=== PATIENT | female | born 1980 | race Caucasian/White ===

== ENCOUNTER 2019-01-04 06:48 | Inpatient (IN) ==
[2019-01-04] MEDS ORDERED: BRETHINE ONE (06:49)
[2019-01-04] MEDS ORDERED: DUONEB (A & A) ONE (06:52)
[2019-01-04] MEDS ORDERED: MAGNESIUM SULFATE 2 GM/S.W.I. 2 GM/50 ML IVPB ONE (06:53)
[2019-01-04] MEDS ORDERED: SOLU-MEDROL ONE (06:54)
[2019-01-04] MEDS ORDERED: DUONEB (A & A) INH ONE ×2 (07:00→08:52)
[2019-01-04] MEDS ORDERED: BRETHINE SUBQ ONE (07:01)
[2019-01-04] MEDS ORDERED: SOLU-MEDROL IV ONE (07:01)
[2019-01-04] MEDS ORDERED: MAGNESIUM SULFATE 2 GM/S.W.I. 2 GM/50 ML IVPB IV ONE (07:02)
--- NOTE | 2019-01-04 07:13 | PROVIDER DOCUMENTATION ---
HPI-Respiratory General - General Chief Complaint: Shortness of Breath Stated Complaint: ASTHMA ATTACK? Time Seen by Provider: 01/04/19 07:02 Source: patient Allergies/Adverse Reactions: Patient Allergies Allergy/AdvReac Type Severity Reaction Status Date / Time No Known Allergies Allergy Verified 01/04/19 07:49 Home Medications: Home Medication List Medication Instructions Recorded Confirmed Last Taken Type Albuterol [Albuterol Neb] 1 dose INHALATION DIRECTED 01/04/19 01/04/19 10/05/18 09:00 History - History of Present Illness-Resp Nature of Presenting Problem: Gradually worsening SOB x 2 days. Pt has a history of asthma and had been frequently using her inhaler until yesterday when it ran out. She is in severe resp distress on arrival, thus history is limited. Pt later admitted that she has been out of her asthma meds for the past 2 weeks due mainly to cost and out of her inhaler for the past day. Quality of Pain: reports: burning Severity in ED: reports: moderate Onset/Duration: reports: 1-3 hours ago Timing: reports: still present, getting worse Context: reports: out of meds Exposure: reports: smoke exposure Cough Quality/Degree: reports: moderate Episode Frequency: frequent episodes Current Respiratory Medication Therapy: Initiated see nurses note Modifying Factors: improves with: albuterol inhaler, coughing, oxygen Associated Symptoms: reports: hurts to breathe, shortness of breath, wheezing Similar Symptoms Previously?: Yes Recently seen or treated by another doctor?: No Review of Systems - Adult - REVIEW OF SYSTEMS - ADULT ROS:: unobtainable per condition Constitutional: reports: see HPI Eyes: reports: see HPI Ears, Nose, Mouth & Throat: reports: see HPI Cardiovascular: reports: see HPI Respiratory: reports: see HPI, cough, wheezing Gastrointestinal: reports: no symptoms reported, see HPI Genitourinary: reports: no symptoms reported, see HPI Musculoskeletal: reports: no symptoms reported, see HPI Integumentary: reports: no symptoms reported, see HPI Neurological: reports: no symptoms reported, see HPI Psychiatric: reports: no symptoms reported, see HPI Endocrine: reports: no symptoms reported, see HPI Hematologic/Lymphatic: reports: no symptoms reported, see HPI Allergic/Immunologic: reports: no symptoms reported, see HPI All Other Systems: Reviewed and Negative Past History - Adult - PAST MEDICAL HISTORY-ADULT Review of Records: reports: Nursing Assessment Review, Medications Reviewed, Social history reviewed & non-contributory. Physical Exam-General - PHYSICAL EXAM-ADULT Initial Vital Signs Reviewed: Yes - CONSTITUTIONAL General Appearance: severe distress - EYES Eyes: PERRL/EOMI, pink conjunctivae - HEAD, EARS, NOSE, MOUTH & THROAT HENMT: normocephalic/atraumatic, moist mucous membranes, pharyngeal erythema - NECK Neck: non-tender, supple, normal inspection - RESPIRATORY Respiratory: decreased breath sounds, accessory muscle use, wheezing, retractions - CARDIOVASCULAR Cardiovascular: normal peripheral pulses, tachycardia. negative: JVD - GASTROINTESTINAL (ABDOMEN) Abdominal Exam: non tender, soft - LYMPHATIC Lymphatic: no adenopathy - MUSCULOSKELETAL Back Exam: normal inspection Extremity: normal range of motion - SKIN Integumentary: normal color, normal turgor, warm/dry - NEUROLOGIC Neurologic: grossly normal - HEART Score HEART Score: History: Slightly Suspicious HEART Score: ECG: Normal HEART Score: Age: < or = 45 Years HEART Score: Risk Factors for Atherosclerotic Disease: 1 or 2 Risk Factors HEART Score: Troponin: < or = Normal Limit Total HEART Score:: 1 Progress - PLAN OF CARE/RESULTS Progress/Plan/Lab Results: Laboratory Results - last 24 hr 01/04/19 01/04/19 01/04/19 07:01 07:04 07:04 WBC RBC Hgb Hct MCV MCH MCHC RDW Std Deviation Plt Count MPV Immature Gran % (Auto) Neut % (Auto) Lymph % (Auto) [place] % (Auto) Eos % (Auto) Baso % (Auto) Immature Gran # (Auto) Neut # (Auto) Lymph # (Auto) [place] # (Auto) Eos # (Auto) Baso # (Auto) Specimen Type Sample Site pH pCO2 pO2 HCO3 Base Excess Oxyhemoglobin ABG O2 Sat (Calculated) ABG O2 Saturation ABG Carboxyhemoglobin ABG Methemoglobin Evangelista Test A-a O2 Difference Total Hemoglobin Lactate Blood Gas Modality FiO2 % Sodium 144 Potassium 4.7 Chloride 107 Carbon Dioxide 27 Anion Gap 11 BUN 11 Creatinine 0.7 Estimated GFR/1.73 m2 > 60 BUN/Creatinine Ratio 16 Glucose 120 H Calculated Osmolality 287 Calcium 9.1 Total Bilirubin < 0.15 L AST 17 ALT 15 Alkaline Phosphatase 125 H Troponin T < 0.010 Tsa-F-Wrhfzwhwcrh Pept 393 H Total Protein 8.0 Albumin 4.3 Globulin 4.0 Albumin/Globulin Ratio 1.0 09/04/19 09/04/19 07:26 07:26 WBC 10.90 H RBC 5.15 Hgb 13.9 Hct 45.7 MCV 88.7 MCH 27.0 MCHC 30.4 L RDW Std Deviation 16.7 H Plt Count 338 MPV 10.0 Immature Gran % (Auto) 0.2 Neut % (Auto) 58.4 Lymph % (Auto) 20.2 L [place] % (Auto) 8.8 Eos % (Auto) 11.8 H Baso % (Auto) 0.6 Immature Gran # (Auto) 0.02 Neut # (Auto) 6.37 Lymph # (Auto) 2.20 [place] # (Auto) 0.96 H Eos # (Auto) 1.29 H Baso # (Auto) 0.06 Specimen Type ARTERIAL Sample Site R BRACHIAL pH 7.33 L pCO2 44 pO2 76 HCO3 22.7 Base Excess -2.8 Oxyhemoglobin 94.0 L ABG O2 Sat (Calculated) 18.0 ABG O2 Saturation 97.1 ABG Carboxyhemoglobin 2.10 ABG Methemoglobin 1.1 Evangelista Test NO A-a O2 Difference 154.0 Total Hemoglobin 13.6 Lactate 1.80 Blood Gas Modality VENTIMASK FiO2 % 40.0 Sodium Potassium Chloride Carbon Dioxide Anion Gap BUN Creatinine Estimated GFR/1.73 m2 BUN/Creatinine Ratio Glucose Calculated Osmolality Calcium Total Bilirubin AST ALT Alkaline Phosphatase Troponin T Ywi-A-Jugkdjcvowd Pept Total Protein Albumin Globulin Albumin/Globulin Ratio Orders Category Date Time Status Admit - [facility] Routine AdmDCTranf 01/04/19 11:22 Active Activity - Bedrest with BSC ORDERED Care 01/04/19 12:06 Active Apply Mechanical Device [QM] ORDERED Care 01/04/19 12:06 Active ED: Urine Bedside ORDERED Care 01/04/19 08:55 Completed Intake and Output-Strict ORDERED Care 01/04/19 12:06 Active Nursing- Assist w/ IS as order ORDERED Care 01/04/19 12:06 Active Saline Loc DIRECTED Care 01/04/19 12:06 Active Turn, Cough and Deep Breathe Q4HR.AWAKE Care 01/04/19 12:06 Active Vital Signs Order Q 4-HR ASSESS Care 01/04/19 12:06 Completed Z-Document. for Tele Applied ORDERED Care 01/04/19 12:06 Active CHEST-1 VIEW [RAD] Stat Exams 01/04/19 07:01 Completed CHEST-PORTABLE [RAD] Routine Exams 01/05/19 06:00 Ordered ABG [RESP] Routine Lab 01/04/19 07:26 Completed BASIC METABOLIC PANEL [CHEM] Routine Lab 01/05/19 06:00 Ordered CBC WITH DIFF [HEME] Stat Lab 01/04/19 12:15 Completed CBC WITH ELECTRONIC DIFF [HEME] Stat Lab 01/04/19 07:26 Completed COMPREHENSIVE METABOLIC PANEL [CHEM] Stat Lab 01/04/19 07:04 Completed PRO B-NATRIURETIC PEPTIDE Stat Lab 01/04/19 07:04 Completed SPUTUM CULTURE WITH GRAM STAIN [RM] Routine Lab 01/04/19 12:20 Results TROPONIN T Stat Lab 01/04/19 07:01 Completed Acetaminophen [Tylenol] Med 01/04/19 12:06 Active 650 mg PO Q6H PRN PRN Albuterol 2.5MG/Ipratrop 0.5MG [Duoneb (A & A)] Med 01/04/19 08:52 Discontinued 3 ml INH NOW ONE Albuterol 2.5MG/Ipratrop 0.5MG [Duoneb (A & A)] Med 01/04/19 12:06 Active 3 ml INH Q2H PRN PRN Albuterol 2.5MG/Ipratrop 0.5MG [Duoneb (A & A)] Med 01/04/19 12:06 Active 3 ml INH RTQ4H Albuterol 2.5MG/Ipratrop 0.5MG [Duoneb (A & A)] Med 01/04/19 06:52 Discontinued 9 ml .ROUTE .STK-MED ONE Albuterol 2.5MG/Ipratrop 0.5MG [Duoneb (A & A)] Med 01/04/19 07:00 Discontinued 9 ml INH NOW ONE Budesonide [Pulmicort] Med 01/04/19 07:38 Discontinued 1 mg INH NOW ONE Levofloxacin 500 mg/D5w [Levaquin 500 mg/D5w] Med 01/04/19 13:00 Active 500 mg in 100 ml IV Q24H Magnesium Sulfate 2 gm/S.w.i. Med 01/04/19 06:53 Discontinued 2 gm in 50 ml .ROUTE As directed Magnesium Sulfate 2 gm/S.w.i. Med 01/04/19 07:02 Discontinued 2 gm in 50 ml IV NOW Methylprednisolone Sod Succ [Solu-Medrol] Med 01/04/19 06:54 Discontinued 125 mg .ROUTE .STK-MED ONE Methylprednisolone Sod Succ [Solu-Medrol] Med 01/04/19 07:01 Discontinued 125 mg IV NOW ONE Methylprednisolone Sod Succ [Solu-Medrol] Med 01/04/19 12:00 Active 80 mg IV Q6H Ondansetron [Zofran] Med 01/04/19 12:06 Active 4 mg IV Q4H PRN PRN Terbutaline [Brethine] Med 01/04/19 07:01 Discontinued 0.25 mg SUBQ NOW ONE Terbutaline [Brethine] Med 01/04/19 06:49 Discontinued 1 mg .ROUTE .STK-MED ONE Aerosol Treatments Routine Ot 01/04/19 08:53 Completed Aerosol Treatments Routine Ot 01/04/19 12:06 Completed Aerosol Treatments Stat Ot 01/04/19 07:38 Completed Aerosol Treatments Stat Ot 01/04/19 07:38 Completed Aerosol Treatments Stat Ot 01/04/19 08:53 Completed Aerosol Treatments Stat Ot 01/04/19 12:06 Completed Incentive Spirometer Q4HR.AWAKE Ot 01/04/19 13:00 Ordered Incentive Spirometer Q4HR.AWAKE Ot 01/04/19 17:00 Ordered Incentive Spirometer Q4HR.AWAKE Ot 01/04/19 21:00 Ordered Incentive Spirometer Q4HR.AWAKE Ot 01/05/19 01:00 Active Incentive Spirometer Q4HR.AWAKE Ot 01/05/19 05:00 Active Incentive Spirometer Q4HR.AWAKE Ot 01/05/19 09:00 Active Oxygen Device Routine Ot 01/04/19 12:06 Completed Peak Flow BID Ot 01/04/19 21:00 Ordered Peak Flow BID Ot 01/05/19 09:00 Active Telemetry [OM.EQ] Routine Oth 01/04/19 12:06 Active EKG [EKG] Routine Ther 01/04/19 Draft Transfer/Admit Order [TRANSFER] Routine Transfer 01/04/19 10:17 Completed At recheck pt admits to being out of her normal inhaler for about 2 weeks and out of her rescue inhaler x 1 day. Pt states that her meds arent free as the reason that she hasnt had them refilled. Pt is a current smoker. At recheck pt notes that she is breathing better but her oxygen drops to 88% on RA. Result Diagrams: 01/04/19 12:15 01/04/19 07:04 - CONSULTS/PCP/HOSPITALIST Notification #1 *Consult/PCP/Hospitalist*: Dr Pineda Time Discussed: 10:10 Consult Disposition: Admit Departure - Departure Date of Disposition Decision: 01/04/19 Time of Disposition Decision: 09:46 DIAGNOSIS: Asthma with severe exacerbation, Hypoxia, Respiratory distress Disposition: ADMITTED INPATIENT 09 Certified Medical Emergency: Emergent Condition: Fair - Critical Care Note This patient required my direct & personal management of CC.: Yes Total Time (mins): 60 Critical Care Statement: This patient required my direct personal management to treat or rule out processes, the absence of which, could potentiallly result in sudden, clinically significant life or limb threatening deterioration. Attestation - Physician/ FRANK Attestation Patient care was provided by Advanced Practice Provider:: No The physician spent face to face time with patient:: Yes Advanced Practice Provider documentation review:: Supervising physician onsite and consulted in the evaluation and care of this patient. The physician did have a face to face encounter with the patient.
[2019-01-04 07:28] LABS: BASO# 0.06 X1000 (0.0-0.2); BASO% 0.6 % (0.0-0.8); EOS# 1.29 X1000 (0.0-0.7); EOS% 11.8 % (0.0-10.0); HEMATOCRIT 45.7 % (37.0-47.0); HEMOGLOBIN 13.9 g/dL (12.0-16.0); IMM GRAN# 0.02 X1000 (0.0-0.04); IMM GRAN% 0.2 % (0.0-0.5); LYMPH% 20.2 % (20.5-51.1); MCHC 30.4 g/dL (33-37); MCV 88.7 FL (81-99); MONO# 0.96 X1000 (0.11-0.59); MONO% 8.8 % (1.7-9.3); NEUT# 6.37 X1000 (1.4-6.5); NEUT% 58.4 % (42.2-75.2); PLT 338 X1000 (130-400); RBC 5.15 XMIL (4.2-5.4); RDW 16.7 % (11.5-14.5)
[2019-01-04] MEDS ORDERED: PULMICORT INH ONE (07:38)
[2019-01-04 07:43] LABS: AGAP 11; ALBUMIN 4.3 g/dL (3.5-5.0); ALKALINE PHOSPHATASE 125 U/L (32-104); BUN 11 mg/dL (8-22); CALCIUM 9.1 mg/dL (8.8-10.2); CHLORIDE 107 mmol/L (98-107); COSMO 287; CREATININE 0.7 mg/dL (0.5-0.9); ESTIMATED GFR > 60; GLUCOSE 120 mg/dL (70-104); GOT 17 U/L (10-30); POTASSIUM 4.7 mmol/L (3.5-5.1); SODIUM 144 mmol/L (136-145); TCO2 27 mmol/L (25-35); TOTAL BILIRUBIN < 0.15 mg/dL (0.20-1.00)
[2019-01-04 07:44] LABS: GPT 15 U/L (10-36)
[2019-01-04 07:45] LABS: BE -2.8 mmoll (-3.0-3.0); BLOOD TYPE ARTERIAL; HCO3-(ACT) 22.7 mmoll (20.0-26.0); METHB 1.1 % (0.0-1.5); PCO2(98.6) 44 mmHg (35-45); PO2(98.6) 76 mmHg (60-100); SAMPLE BLOOD; SAO2 97.1 % (95.0-100.0); THB 13.6 g/dL (11.5-17.4); pH(98.6) 7.33 (7.35-7.45)
[2019-01-04 07:48] LABS: MODALITY VENTIMASK
[2019-01-04 07:49] LABS: ALLEN TEST NO
--- NOTE | 2019-01-04 08:11 | EKG Report ---
Test Performed on : 01/04/2019 06:54:45 AM Test Reason : ER Blood Pressure : / mmHG Vent. Rate : 125 BPM Atrial Rate : 125 BPM P-R Int : 150 ms QRS Dur : 058 ms QT Int : 308 ms P-R-T Axes : 080 034 076 degrees QTc Int : 444 ms Sinus tachycardia. Possible Left atrial enlargement Anteroseptal infarct , age undetermined Abnormal ECG No previous ECGs available Unconfirmed Result
--- NOTE | 2019-01-04 08:48 | Diag Imaging Result Doc PS360 ---
CHEST-1 VIEW - 01/04/2019 INDICATION: sob COMPARISON: None FINDINGS: The lungs are normally expanded and clear. Heart size and mediastinal contours are normal. No pneumothorax or pleural effusion. IMPRESSION: Negative exam. Electronically signed by Latrell Wick 01/04/2019 8:46 AM
[2019-01-04] MEDS ORDERED: DUONEB (A & A) INH PRN (12:06)
[2019-01-04] MEDS ORDERED: ZOFRAN IV PRN (12:06)
[2019-01-04] MEDS ORDERED: TYLENOL PO PRN (12:06)
[2019-01-04] MEDS: DUONEB (A & A) INH SCH ×4 (12:20→23:55)
[2019-01-04 12:33] LABS: BASO# 0.02 X1000 (0.0-0.2); BASO% 0.2 % (0.0-0.8); EOS# 0.03 X1000 (0.0-0.7); EOS% 0.3 % (0.0-10.0); HEMATOCRIT 42.3 % (37.0-47.0); HEMOGLOBIN 12.9 g/dL (12.0-16.0); IMM GRAN# 0.02 X1000 (0.0-0.04); IMM GRAN% 0.2 % (0.0-0.5); LYMPH# 0.26 X1000 (1.2-3.4); LYMPH% 2.5 % (20.5-51.1); MCHC 30.5 g/dL (33-37); MCV 88.5 FL (81-99); MONO# 0.06 X1000 (0.11-0.59); MONO% 0.6 % (1.7-9.3); MPV 9.8 FL (7.4-10.4); NEUT# 9.95 X1000 (1.4-6.5); NEUT% 96.2 % (42.2-75.2); PLT 284 X1000 (130-400); RBC 4.78 XMIL (4.2-5.4); RDW 16.3 % (11.5-14.5); WBC 10.34 X1000 (4.8-10.8)
[2019-01-04 12:34] LABS: LYMPHS 2 % (21-51); SEGS 98 % (42-75)
[2019-01-04] MEDS: SOLU-MEDROL IV SCH ×2 (13:35→17:29)
[2019-01-04] MEDS: LEVAQUIN 500 MG/D5W 500 MG/100 ML IVPB IV SCH (13:35)
[2019-01-04] MEDS ORDERED: PNEUMOVAX 23 IM ONE (14:15)
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
[2019-01-04] MEDS: PULMICORT INH SCH (20:37)
[2019-01-05] MEDS: SOLU-MEDROL IV SCH ×4 (00:08→20:54)
--- NOTE | 2019-01-05 00:32 | HISTORY AND PHYSICAL ---
ADDENDUM: Patient seen and examined by myself. Full note dictated and discussed with nurse practitioner. The patient is a 38-year-old female who has a known history of asthma. Unfortunately, she notes that she has not been able to afford her asthma medications. She presented to the ER with marked wheezing and shortness of breath. On exam she is moderately labored, although improved after being given several breathing treatments in the ER. We will admit her to the hospital. IV fluids, oxygen, breathing treatments and steroids. We will continue to follow. Expect that she will be in the hospital for a few days. cc: Yves Pineda MD
[2019-01-05] MEDS: DUONEB (A & A) INH SCH ×6 (04:23→22:49)
[2019-01-05 06:50] LABS: AGAP 12; BUN 17 mg/dL (8-22); CALCIUM 9.2 mg/dL (8.8-10.2); CHLORIDE 104 mmol/L (98-107); COSMO 291; CREATININE 0.9 mg/dL (0.5-0.9); ESTIMATED GFR > 60; GLUCOSE 244 mg/dL (70-104); POTASSIUM 4.9 mmol/L (3.5-5.1); SODIUM 141 mmol/L (136-145); TCO2 25 mmol/L (25-35)
--- NOTE | 2019-01-05 08:42 | Diag Imaging Result Doc PS360 ---
EXAM: CHEST-PORTABLE - 01/05/2019 HISTORY: short of breath TECHNIQUE: Portable chest COMPARISON: 01/04/2019 FINDINGS: Heart size is normal. There is stable mild prominence of central markings. There is no consolidation, pleural effusion, or pneumothorax identified. IMPRESSION: Stable exam from prior. Electronically signed by Moses Lyman 01/05/2019 8:39 AM
[2019-01-05] MEDS: PULMICORT INH SCH ×2 (08:50→19:31)
[2019-01-05] MEDS: KLONOPIN PO PRN (13:08)
[2019-01-05] MEDS: LEVAQUIN 500 MG/D5W 500 MG/100 ML IVPB IV SCH (13:09)
--- NOTE | 2019-01-06 03:20 | PROGRESS NOTE ---
DATE: 01/05/2019 SUBJECTIVE: Patient with no new complaints states she is still quite anxious and nervous. She is still having some marked shortness of breath and wheezing. Denies any fevers or chills. PHYSICAL EXAMINATION: Vital Signs: Reviewed. Temperature 98.5 degrees, pulse 107, respiratory 18, BP 142/90. General: Patient is awake, alert. She is in mild respiratory distress. HEENT: Normocephalic. Neck: Supple. Cardiovascular: Regular rate. No murmurs. Chest: Decreased breath sounds but improved from yesterday's exam. Moderate wheezing throughout. Abdomen: Soft. Extremities: Moves all extremities. ASSESSMENT: 1. Severe asthma exacerbation. 2. Hypoxic respiratory failure. 3. Chronic anxiety. PLAN: We will continue patient in the hospital. Continue breathing treatments, oxygen, steroids, and will follow. cc: Yves Pineda MD
[2019-01-06] MEDS: DUONEB (A & A) INH SCH ×5 (03:28→19:17)
[2019-01-06] MEDS: SOLU-MEDROL IV SCH ×3 (05:00→20:28)
[2019-01-06 08:18] LABS: HEMATOCRIT 38.5 % (37.0-47.0); HEMOGLOBIN 11.7 g/dL (12.0-16.0); MCHC 30.4 g/dL (33-37); MCV 88.9 FL (81-99); MPV 9.8 FL (7.4-10.4); RBC 4.33 XMIL (4.2-5.4); RDW 16.3 % (11.5-14.5); WBC 18.37 X1000 (4.8-10.8)
[2019-01-06] MEDS: PULMICORT INH SCH ×2 (08:20→19:17)
[2019-01-06 08:28] LABS: AGAP 10; ALBUMIN 3.6 g/dL (3.5-5.0); ALKALINE PHOSPHATASE 110 U/L (32-104); BUN 21 mg/dL (8-22); CALCIUM 9.1 mg/dL (8.8-10.2); CHLORIDE 103 mmol/L (98-107); COSMO 285; CREATININE 0.7 mg/dL (0.5-0.9); ESTIMATED GFR > 60; GLUCOSE 213 mg/dL (70-104); GOT 31 U/L (10-30); GPT 27 U/L (10-36); MAGNESIUM 1.8 mg/dL (1.5-2.7); POTASSIUM 5.4 mmol/L (3.5-5.1); SODIUM 138 mmol/L (136-145); TCO2 25 mmol/L (25-35); TOTAL BILIRUBIN < 0.15 mg/dL (0.20-1.00); TOTAL PROTEIN 6.8 g/dL (6.3-8.3)
[2019-01-06] MEDS: LEVAQUIN PO SCH (09:14)
[2019-01-06] MEDS: WELLBUTRIN XL PO SCH (09:15)
[2019-01-06] MEDS: VALTREX PO SCH (09:15)
[2019-01-06] MEDS: KLONOPIN PO PRN (22:18)
--- NOTE | 2019-01-06 23:58 | PROGRESS NOTE ---
DATE: 01/06/2019 SUBJECTIVE: Patient states that she is feeling better. However she is still anxious, notes that she takes Klonopin at home on a daily basis. States her breathing overall is improved. PHYSICAL EXAMINATION: Vital Signs: Reviewed, temperature 98 degrees, pulse 90, respiratory 22, BP 122/87. General: Patient is awake, alert. She is in mild respiratory distress which is actually improved from admission. HEENT: Normocephalic. Neck: Supple. Cardiovascular: Regular rate. Chest: Mild to moderate wheezing. Poor but improved air movement, no crackles. Abdomen: Soft, nondistended. Extremities: Moves all extremities. No edema. ASSESSMENT: 1. Moderate asthma exacerbation. She continues to slowly improve. 2. Chronic anxiety, depression. Restart Klonopin and Wellbutrin. 3. Chronic tobacco abuse. Discussed with patient again perils of smoking. PLAN: Will restart patient's Klonopin. Oddly enough she states she takes 1 mg daily, however for the past 3 months it appears though she takes] 1 mg twice daily. Discussed with patient that it is too much for severity of her asthma exacerbation and all benzodiazepines decrease your respiratory effort, oxygenation etc. Discussed that we need to decrease her Klonopin so as not to cause her to have respiratory failure and require intubation. We will continue Solu-Medrol 60 mg q.8, will not decrease today as she continues to have significant wheeze. cc: MD WILLARD Overton
[2019-01-07] MEDS: DUONEB (A & A) INH SCH ×6 (03:54→22:51)
[2019-01-07] MEDS: SOLU-MEDROL IV SCH ×3 (04:30→20:58)
[2019-01-07] MEDS: PULMICORT INH SCH ×2 (08:11→19:16)
[2019-01-07] MEDS: VALTREX PO SCH (09:20)
[2019-01-07] MEDS: LEVAQUIN PO SCH (09:20)
[2019-01-07] MEDS: WELLBUTRIN XL PO SCH (09:20)
--- NOTE | 2019-01-07 13:45 | PROGRESS NOTE ---
DATE: 01/07/2019 SUBJECTIVE: The patient continues to have cough and wheezing. OBJECTIVE: Vital Signs: Temperature 98.0 degrees, pulse 98 per minute, respiratory rate 18 per minute, blood pressure 141/103, pulse oximetry 99% on room air. General: Patient is alert and oriented x3. She does not appear to be in any acute distress. Cardiovascular System: First and second heart sounds are audible without murmurs or gallops. Respiratory System: No respiratory distress noted. Bilateral lung air entry is moderately decreased with moderate expiratory wheeze present on auscultation bilaterally. Gastrointestinal: Abdomen is benign. DIAGNOSTIC DATA: No new labs have been done today. IMPRESSION: 1. Acute asthma exacerbation. 2. [place] [id number] yesterday. 3. Anxiety disorder. 4. Depression. PLAN: The patient will be continued on IV Solu-Medrol along with levofloxacin. Her leukocytosis could be secondary to methylprednisolone. We are going to continue with her anxiety and depression medications as well and repeat labs in the morning tomorrow. Further recommendations will be given as per hospital course. cc: Matthew Engle MD
[2019-01-08] MEDS: DUONEB (A & A) INH SCH ×6 (03:20→22:55)
[2019-01-08] MEDS: SOLU-MEDROL IV SCH ×3 (04:27→20:49)
[2019-01-08 07:13] LABS: BASO# 0.02 X1000 (0.0-0.2); BASO% 0.2 % (0.0-0.8); HEMATOCRIT 35.8 % (37.0-47.0); HEMOGLOBIN 10.9 g/dL (12.0-16.0); IMM GRAN# 0.31 X1000 (0.0-0.04); IMM GRAN% 3.1 % (0.0-0.5); LYMPH# 1.14 X1000 (1.2-3.4); LYMPH% 11.4 % (20.5-51.1); MCH 26.5 PG (27-31); MCHC 30.4 g/dL (33-37); MCV 86.9 FL (81-99); MONO# 0.67 X1000 (0.11-0.59); MONO% 6.7 % (1.7-9.3); MPV 9.9 FL (7.4-10.4); NEUT# 7.86 X1000 (1.4-6.5); NEUT% 78.6 % (42.2-75.2); PLT 278 X1000 (130-400); RBC 4.12 XMIL (4.2-5.4); RDW 16.3 % (11.5-14.5)
[2019-01-08 07:27] LABS: AGAP 10; BUN 23 mg/dL (8-22); CALCIUM 8.3 mg/dL (8.8-10.2); CHLORIDE 98 mmol/L (98-107); COSMO 280; CREATININE 0.8 mg/dL (0.5-0.9); ESTIMATED GFR > 60; GLUCOSE 180 mg/dL (70-104); POTASSIUM 4.7 mmol/L (3.5-5.1); SODIUM 136 mmol/L (136-145); TCO2 29 mmol/L (25-35)
[2019-01-08] MEDS: PULMICORT INH SCH ×2 (07:58→19:14)
[2019-01-08] MEDS: LEVAQUIN PO SCH (10:35)
[2019-01-08] MEDS: WELLBUTRIN XL PO SCH (10:35)
[2019-01-08] MEDS: VALTREX PO SCH (10:35)
[2019-01-08] MEDS ORDERED: HUMULIN R (PARKWAY) SUBQ ONE (10:52)
--- NOTE | 2019-01-08 12:39 | PROGRESS NOTE ---
DATE: 01/08/2019 SUBJECTIVE: The patient feels better today and denies having any acute complaints. OBJECTIVE: General: She does not appear to be in any acute distress. Cardiovascular: First and second heart sounds are audible without any murmurs, gallops. Respiratory: Bilateral air entry is moderately decreased with a few rhonchi and wheezing present expiration bilaterally. IMPRESSION: 1. Acute asthma exacerbation. 2. Hyperglycemia. 3. Anxiety disorder. 4. Depression. PLAN: The patient will be continued on IV methylprednisolone, along with oral levofloxacin. I am going to reduce the dose of methylprednisolone to 40 mg IV every 12 hours. I am also going to start her on lispro insulin as per sliding scale to address her hyperglycemia and obtain hemoglobin A1c. She will continue with Clonazepam and Wellbutrin for her anxiety and depression symptoms. She will also continue with Pulmicort inhalation and we will probably be able to discharge home in the next 1-2 days. cc: Matthew Engle MD
[2019-01-08] MEDS ORDERED: MIRALAX PO ONE (13:27)
[2019-01-08] MEDS: KLONOPIN PO PRN (20:50)
[2019-01-09] MEDS: DUONEB (A & A) INH SCH ×4 (03:37→15:40)
[2019-01-09] MEDS: SOLU-MEDROL IV SCH (05:29)
[2019-01-09 07:18] LABS: BASO# 0.02 X1000 (0.0-0.2); BASO% 0.2 % (0.0-0.8); EOS# 0.01 X1000 (0.0-0.7); EOS% 0.1 % (0.0-10.0); HEMATOCRIT 37.6 % (37.0-47.0); HEMOGLOBIN 11.2 g/dL (12.0-16.0); IMM GRAN# 0.63 X1000 (0.0-0.04); IMM GRAN% 5.2 % (0.0-0.5); LYMPH% 13.1 % (20.5-51.1); MCHC 29.8 g/dL (33-37); MCV 87.4 FL (81-99); MONO% 9.8 % (1.7-9.3); MPV 9.8 FL (7.4-10.4); NEUT# 8.73 X1000 (1.4-6.5); NEUT% 71.6 % (42.2-75.2); PLT 292 X1000 (130-400); RDW 16.5 % (11.5-14.5); WBC 12.19 X1000 (4.8-10.8)
[2019-01-09 07:28] LABS: AGAP 10; BUN 25 mg/dL (8-22); CALCIUM 8.2 mg/dL (8.8-10.2); CHLORIDE 101 mmol/L (98-107); COSMO 285; CREATININE 0.8 mg/dL (0.5-0.9); ESTIMATED GFR > 60; GLUCOSE 185 mg/dL (70-104); POTASSIUM 4.9 mmol/L (3.5-5.1); SODIUM 138 mmol/L (136-145); TCO2 27 mmol/L (25-35)
[2019-01-09 07:46] LABS: HEMOGLOBIN A1C 5.8 % (4.8-6.0)
[2019-01-09] MEDS: VALTREX PO SCH (08:30)
[2019-01-09] MEDS: LEVAQUIN PO SCH (08:30)
[2019-01-09] MEDS: WELLBUTRIN XL PO SCH (08:30)
[2019-01-09] MEDS: PULMICORT INH SCH (09:04)
[2019-01-09 10:01] LABS: ANISOCYTOSIS 1+; LYMPHS 13 % (21-51); MONO 7 % (1-9); SEGS 80 % (42-75)
[2019-01-09] MEDS ORDERED: SOLU-MEDROL IV SCH (14:00)
[2019-01-09 15:46] VITALS: BP 149/89
--- NOTE | 2019-01-10 01:03 | DISCHARGE SUMMARY ---
ADMISSION DATE: 01/04/2019 DISCHARGE DATE: 01/09/2019 DISCHARGE DIAGNOSES: 1. Acute asthma exacerbation. 2. Medical noncompliance. 3. Hyperglycemia. 4. Chronic anxiety. 5. Depression. CONSULTATIONS: None. PROCEDURES: None. BRIEF HOSPITAL COURSE: The patient is a 38-year-old female who presented to the hospital with cough and congestion, subsequent diagnosed with an asthma exacerbation. She was markedly wheezing, was admitted and placed on Solu-Medrol, which she stayed on 60 IV q.8 for several days and then was weaned down. I discussed with her on several different occasions the importance of avoiding smoke exposure, chemical and dust exposure. Thankfully she continued to improve, and on discharge she is ambulating without any difficulty. She has no current wheezing and good air movement. DISPOSITION: The patient will be discharged home. She will continue antibiotics, steroids and breathing treatments at home. FOLLOW-UP: She will follow up outpatient with treatment facility of choice. TIME SPENT: Greater than 30 minutes. cc: Yves Pineda MD
== END 2019-01-09 18:55 | disposition home or self-care (01) | DRG 202 ==
LOC: P.ED 06:48 → SUATTDRO 12:04 → P.MEDSURG 12:04
PROVIDERS: ATTEND Family Medicine

== ENCOUNTER 2019-02-21 21:27 | Inpatient (IN) ==
[2019-02-21] MEDS ORDERED: DUONEB (A & A) INH ONE ×2 (21:46→23:12)
[2019-02-21] MEDS ORDERED: ALBUTEROL NEB INH ONE (21:47)
[2019-02-21] MEDS ORDERED: MAGNESIUM SULFATE 2 GM/S.W.I. 2 GM/50 ML IVPB IV ONE (21:47)
[2019-02-21] MEDS ORDERED: SOLU-MEDROL IV ONE (21:48)
[2019-02-21 21:59] LABS: BASO# 0.08 X1000 (0.0-0.2); BASO% 0.4 % (0.0-0.8); EOS# 2.98 X1000 (0.0-0.7); EOS% 16.5 % (0.0-10.0); HEMATOCRIT 41.9 % (37.0-47.0); HEMOGLOBIN 13.1 g/dL (12.0-16.0); IMM GRAN# 0.04 X1000 (0.0-0.04); IMM GRAN% 0.2 % (0.0-0.5); LYMPH# 2.67 X1000 (1.2-3.4); LYMPH% 14.8 % (20.5-51.1); MCH 27.6 PG (27-31); MCHC 31.3 g/dL (33-37); MCV 88.4 FL (81-99); MONO# 1.32 X1000 (0.11-0.59); MONO% 7.3 % (1.7-9.3); MPV 9.5 FL (7.4-10.4); NEUT# 10.96 X1000 (1.4-6.5); NEUT% 60.8 % (42.2-75.2); PLT 334 X1000 (130-400); RBC 4.74 XMIL (4.2-5.4); RDW 16.7 % (11.5-14.5); WBC 18.05 X1000 (4.8-10.8)
[2019-02-21 22:07] LABS: BE 0.3 mmoll (-3.0-3.0); BLOOD TYPE ARTERIAL; METHB 1.2 % (0.0-1.5); O2(CT) 17.3 mL/dL (15.0-23.0); PCO2(98.6) 42 mmHg (35-45); PO2(98.6) 63 mmHg (60-100); SAMPLE BLOOD; SAO2 94.8 % (95.0-100.0); THB 13.7 g/dL (11.5-17.4); pH(98.6) 7.39 (7.35-7.45)
[2019-02-21 22:10] LABS: ALLEN TEST NO; MODALITY CANNULA; O2HB 89.9 % (95.0-99.0)
[2019-02-21 22:17] LABS: AGAP 12; ALBUMIN 4.5 g/dL (3.5-5.0); ALKALINE PHOSPHATASE 126 U/L (32-104); BUN 15 mg/dL (8-22); CALCIUM 9.3 mg/dL (8.8-10.2); CHLORIDE 104 mmol/L (98-107); COSMO 283; CREATININE 0.8 mg/dL (0.5-0.9); ESTIMATED GFR > 60; GLUCOSE 109 mg/dL (70-104); GOT 16 U/L (10-30); GPT 10 U/L (10-36); POTASSIUM 4.3 mmol/L (3.5-5.1); SODIUM 141 mmol/L (136-145); TCO2 25 mmol/L (25-35); TOTAL PROTEIN 7.4 g/dL (6.3-8.3)
[2019-02-21 22:18] LABS: INR 0.9; PROTIME 12.6 Seconds (11.0-16.0)
[2019-02-21 22:19] LABS: PTT 27.8 Seconds (22.3-41.8)
--- NOTE | 2019-02-21 22:20 | EKG Report ---
Test Performed on : 02/21/2019 10:05:27 PM Test Reason : SOB Blood Pressure : / mmHG Vent. Rate : 123 BPM Atrial Rate : 123 BPM P-R Int : 122 ms QRS Dur : 076 ms QT Int : 318 ms P-R-T Axes : 081 038 073 degrees QTc Int : 455 ms Sinus tachycardia. Possible Left atrial enlargement Borderline ECG When compared with ECG of 04-JAN-2019 06:54, (Unconfirmed) Criteria for Anteroseptal infarct are no longer present Unconfirmed Result
--- NOTE | 2019-02-21 22:41 | Diag Imaging Result Doc PS360 ---
EXAM: CHEST-1 VIEW HISTORY: SOB TECHNIQUE: Chest single view COMPARISON: 01/05/2019 FINDINGS: The lungs are well expanded. The heart is not enlarged. The vessels are not distended. There are no infiltrates. No effusion identified. IMPRESSION: Negative exam. Electronically signed by Hayes Omalley 02/21/2019 10:39 PM
[2019-02-21 23:36] LABS: BILIRUBIN URINE NEGATIVE (NEGATIVE); BLOOD URINE NEGATIVE (NEGATIVE); CLARITY CLEAR (CLEAR); COLOR YELLOW; GLUCOSE URINE NEGATIVE (NEGATIVE); KETONE URINE NEGATIVE (NEGATIVE); LEUKOCYTES URINE NEGATIVE (NEGATIVE); NITRITE URINE NEGATIVE (NEGATIVE); PROTEIN URINE NEGATIVE (NEGATIVE); SP GRAVITY URINE 1.015; UROBILINOGEN URINE NORMAL
[2019-02-21 23:46] LABS: URINE BACTERIA 3+ /HFP; URINE CAST NONE SEEN /LPF; URINE CRYSTAL NONE SEEN /HPF; URINE EPITHELIAL CELLS <10 /HPF (<10); URINE SOURCE CLEAN CATCH; URINE WBC <10 /HPF (<10); URINE YEAST NONE SEEN /HPF
[2019-02-22] MEDS ORDERED: ROCEPHIN 1 GM in NS 50 ML IV ONE (00:26)
--- NOTE | 2019-02-22 00:28 | PROVIDER DOCUMENTATION ---
This chart was entered by Kristan Vázquez Scribe, acting as scribe for Fariba Fisher MD. HPI-Respiratory General - General Chief Complaint: Asthma Attack Stated Complaint: SOB/ASTHMA Time Seen by Provider: 02/21/19 21:46 Source: patient Allergies/Adverse Reactions: Patient Allergies Allergy/AdvReac Type Severity Reaction Status Date / Time No Known Allergies Allergy Verified 02/21/19 21:35 Home Medications: Home Medication List Medication Instructions Recorded Confirmed Last Taken Type Bupropion HCl [Wellbutrin Xl] 150 mg PO DAILY 01/05/19 02/21/19 Unknown History Albuterol 2.5MG/Ipratrop 0.5MG 3 ml INH RTQ4H #120 neb 01/09/19 02/21/19 Unknown Rx [Duoneb (A & A)] - History of Present Illness-Resp Nature of Presenting Problem: Pt is a 38 yof who presents to the ED with a complaint of SOB. Pt states the symptoms began approximately 5 days ago, but they have worsen in the last 24 hours. Pt reports using a breathing treatment. Pt reports a fever and dry cough. Pt reports white bubbly phlegm. Pt reports sinus issues. Quality of Pain: reports: tightness Severity in ED: reports: moderate Onset/Duration: reports: 5 days ago Timing: reports: still present, getting worse Cough Quality/Degree: reports: moderate Episode Frequency: occasional episodes Current Respiratory Medication Therapy: Initiated see nurses note, Initiated albuterol Associated Symptoms: reports: cough, fever/chills, shortness of breath, wheezing Similar Symptoms Previously?: Yes Recently seen or treated by another doctor?: Yes Review of Systems - Adult - REVIEW OF SYSTEMS - ADULT Constitutional: reports: see HPI, fever Eyes: reports: no symptoms reported Ears, Nose, Mouth & Throat: reports: no symptoms reported Cardiovascular: reports: no symptoms reported Respiratory: reports: see HPI, cough, shortness of breath, wheezing Gastrointestinal: reports: no symptoms reported Genitourinary: reports: no symptoms reported Musculoskeletal: reports: no symptoms reported Integumentary: reports: no symptoms reported Neurological: reports: no symptoms reported Psychiatric: reports: no symptoms reported Endocrine: reports: no symptoms reported Hematologic/Lymphatic: reports: no symptoms reported Allergic/Immunologic: reports: no symptoms reported All Other Systems: Reviewed and Negative Past History - Adult - PAST MEDICAL HISTORY-ADULT Review of Records: reports: Old Records Reviewed, Nursing Assessment Review, Medications Reviewed, Social history reviewed & non-contributory. Major Childhood Illnesses: reports: denies history Cardiovascular: reports: denies history Respiratory: reports: denies history Gastrointestinal: reports: denies history Obstetrical/Gynecological: reports: denies history Genitourinary: reports: denies history Musculoskeletal: reports: denies history Neurological: reports: denies history Endocrine/Immune: reports: denies history Other Conditions: reports: MRSA - PRIOR SURGERIES/PROCEDURES Surgical/Procedure History: reports: other (sinus, ankle) - IMMUNIZATION STATUS Childhood Immunizations: See Nurse Assessment Flu Vaccine: See Nurse Assessment - FAMILY HISTORY Family History: reviewed, not pertinent - SOCIAL HISTORY Smoking: cigarettes, less than 1 pack/day Provider spent 3-5 mins advising pt. on dangers of tobacco.: Discussed manners to quit use, and f/u contacts for add'l counseling. Substance Use: denies Alcohol Use Frequency: occasionally Living Situation: family Physical Exam-General - PHYSICAL EXAM-ADULT Initial Vital Signs Reviewed: Yes - CONSTITUTIONAL General Appearance: alert, moderate distress. negative: slow to respond - EYES Eyes: PERRL/EOMI. negative: sclera injected, scleral icterus, sunken eyes - HEAD, EARS, NOSE, MOUTH & THROAT HENMT: normocephalic/atraumatic, normal ENT inspection, pharynx normal - NECK Neck: non-tender, full range of motion, supple, normal inspection - RESPIRATORY Respiratory: respiratory distress, decreased breath sounds, accessory muscle use , wheezing, retractions, increased rate - CARDIOVASCULAR Cardiovascular: no edema, no murmur, tachycardia - GASTROINTESTINAL (ABDOMEN) Abdominal Exam: normal bowel sounds, non tender, soft. negative: guarding, rebound - MUSCULOSKELETAL Back Exam: normal inspection, no CVA tenderness Extremity: normal range of motion, non-tender, normal inspection, no pedal edema - SKIN Integumentary: normal color, normal turgor, warm/dry - NEUROLOGIC Neurologic: grossly normal - PSYCHIATRIC Psych/Mental Status: oriented x 3, anxious, other (moderate stress) Progress - PLAN OF CARE/RESULTS Progress/Plan/Lab Results: Vital Signs - 8 hr 02/21/19 21:29 02/21/19 21:53 02/21/19 22:03 Temperature 100 F H Pulse Rate 130 H 123 H 121 H Respiratory Rate 30 H 27 H 33 H Blood Pressure 161/107 166/108 O2 Sat by Pulse Oximetry 89 L 93 L 95 02/21/19 23:20 02/21/19 23:21 Temperature Pulse Rate 119 H 117 H Respiratory Rate 22 24 Blood Pressure 129/92 O2 Sat by Pulse Oximetry 93 L 93 L Laboratory Results - last 24 hr 02/21/19 02/21/19 02/21/19 21:45 21:51 21:51 WBC 18.05 H RBC 4.74 Hgb 13.1 Hct 41.9 MCV 88.4 MCH 27.6 MCHC 31.3 L RDW Std Deviation 16.7 H Plt Count 334 MPV 9.5 Immature Gran % (Auto) 0.2 Neut % (Auto) 60.8 Lymph % (Auto) 14.8 L Crisp % (Auto) 7.3 Eos % (Auto) 16.5 H Baso % (Auto) 0.4 Immature Gran # (Auto) 0.04 Neut # (Auto) 10.96 H Lymph # (Auto) 2.67 Crisp # (Auto) 1.32 H Eos # (Auto) 2.98 H Baso # (Auto) 0.08 PT INR PTT (Actin FS) Specimen Type ARTERIAL Sample Site R BRACHIAL pH 7.39 pCO2 42 pO2 63 HCO3 25.0 Base Excess 0.3 Oxyhemoglobin 89.9 L* ABG O2 Sat (Calculated) 17.3 ABG O2 Saturation 94.8 L ABG Carboxyhemoglobin 4.00 H ABG Methemoglobin 1.2 Evangelista Test NO A-a O2 Difference 113.0 Total Hemoglobin 13.7 Lactate 1.60 Liter Flow 3.0 Blood Gas Modality CANNULA FiO2 % 32.0 Sodium Potassium Chloride Carbon Dioxide Anion Gap BUN Creatinine Estimated GFR/1.73 m2 BUN/Creatinine Ratio Glucose Calculated Osmolality Calcium Total Bilirubin AST ALT Alkaline Phosphatase Creatine Kinase Troponin T < 0.010 Enm-V-Kegpwiimbyj Pept Total Protein Albumin Globulin Albumin/Globulin Ratio Plasma Lactate Urine Source Urine Color Urine Clarity Urine pH Ur Specific Iron Urine Protein Urine Ketones Urine Blood Urine Nitrite Urine Bilirubin Urine Urobilinogen Urine Microscopic RBC Urine WBC Urine Microscopic WBC Ur Epithelial Cells Urine Crystals Urine Bacteria Urine Casts Urine Yeast Urine Glucose 02/21/19 02/21/19 02/21/19 21:51 21:51 21:51 WBC RBC Hgb Hct MCV MCH MCHC RDW Std Deviation Plt Count MPV Immature Gran % (Auto) Neut % (Auto) Lymph % (Auto) Crisp % (Auto) Eos % (Auto) Baso % (Auto) Immature Gran # (Auto) Neut # (Auto) Lymph # (Auto) Crisp # (Auto) Eos # (Auto) Baso # (Auto) PT INR PTT (Actin FS) Specimen Type Sample Site pH pCO2 pO2 HCO3 Base Excess Oxyhemoglobin ABG O2 Sat (Calculated) ABG O2 Saturation ABG Carboxyhemoglobin ABG Methemoglobin Evangelista Test A-a O2 Difference Total Hemoglobin Lactate Liter Flow Blood Gas Modality FiO2 % Sodium 141 Potassium 4.3 Chloride 104 Carbon Dioxide 25 Anion Gap 12 BUN 15 Creatinine 0.8 Estimated GFR/1.73 m2 > 60 BUN/Creatinine Ratio 19 Glucose 109 H Calculated Osmolality 283 Calcium 9.3 Total Bilirubin 0.20 AST 16 ALT 10 Alkaline Phosphatase 126 H Creatine Kinase 128 Troponin T Iip-Y-Zixopmovhpg Pept 37 Total Protein 7.4 Albumin 4.5 Globulin 3.0 Albumin/Globulin Ratio 2.0 Plasma Lactate Urine Source Urine Color Urine Clarity Urine pH Ur Specific Iron Urine Protein Urine Ketones Urine Blood Urine Nitrite Urine Bilirubin Urine Urobilinogen Urine Microscopic RBC Urine WBC Urine Microscopic WBC Ur Epithelial Cells Urine Crystals Urine Bacteria Urine Casts Urine Yeast Urine Glucose 02/21/19 02/21/19 02/21/19 21:51 22:25 23:02 WBC RBC Hgb Hct MCV MCH MCHC RDW Std Deviation Plt Count MPV Immature Gran % (Auto) Neut % (Auto) Lymph % (Auto) Crisp % (Auto) Eos % (Auto) Baso % (Auto) Immature Gran # (Auto) Neut # (Auto) Lymph # (Auto) Crisp # (Auto) Eos # (Auto) Baso # (Auto) PT 12.6 INR 0.90 PTT (Actin FS) 27.8 Specimen Type Sample Site pH pCO2 pO2 HCO3 Base Excess Oxyhemoglobin ABG O2 Sat (Calculated) ABG O2 Saturation ABG Carboxyhemoglobin ABG Methemoglobin Evangelista Test A-a O2 Difference Total Hemoglobin Lactate Liter Flow Blood Gas Modality FiO2 % Sodium Potassium Chloride Carbon Dioxide Anion Gap BUN Creatinine Estimated GFR/1.73 m2 BUN/Creatinine Ratio Glucose Calculated Osmolality Calcium Total Bilirubin AST ALT Alkaline Phosphatase Creatine Kinase Troponin T Qla-F-Vhzxkaxewdy Pept Total Protein Albumin Globulin Albumin/Globulin Ratio Plasma Lactate 1.3 Urine Source CLEAN CATCH Urine Color YELLOW Urine Clarity CLEAR Urine pH 7.0 Ur Specific Iron 1.015 Urine Protein NEGATIVE Urine Ketones NEGATIVE Urine Blood NEGATIVE Urine Nitrite NEGATIVE Urine Bilirubin NEGATIVE Urine Urobilinogen NORMAL Urine Microscopic RBC Not Reportable Urine WBC NEGATIVE Urine Microscopic WBC <10 Ur Epithelial Cells <10 Urine Crystals NONE SEEN Urine Bacteria 3+ Urine Casts NONE SEEN Urine Yeast NONE SEEN Urine Glucose NEGATIVE Orders Category Date Time Status Cardiac Monitoring DIRECTED Care 02/21/19 22:06 Active Notify MD of + Sepsis Screen NOW Care 02/21/19 22:06 Active Notify Physician As Ordered Care 02/21/19 22:06 Active Nursing- Obtain EKG ONCE Care 02/21/19 21:50 Active CHEST-1 VIEW [RAD] Stat Exams 02/21/19 21:49 Completed ABG [RESP] Routine Lab 02/21/19 21:45 Completed BLOOD CULTURE [BLDCUL] Stat Lab 02/21/19 22:27 Ordered CBC WITH ELECTRONIC DIFF [HEME] Stat Lab 02/21/19 21:51 Completed CK PROFILE [SP CHEM] Stat Lab 02/21/19 21:51 Completed COMPREHENSIVE METABOLIC PANEL [CHEM] Stat Lab 02/21/19 21:51 Completed LACTATE, PLASMA [CHEM] Lab 02/22/19 01:15 Uncollected LACTATE, PLASMA [CHEM] Lab 02/22/19 04:15 Uncollected LACTATE, PLASMA [CHEM] Q3H Lab 02/21/19 22:25 Completed PRO B-NATRIURETIC PEPTIDE Stat Lab 02/21/19 21:51 Completed PROTIME WITH INR [COAG] Stat Lab 02/21/19 21:51 Completed PTT [COAG] Stat Lab 02/21/19 21:51 Completed TROPONIN T Stat Lab 02/21/19 21:[address] W/POSS RFLX CULT [URINALYSIS] Stat Lab 02/21/19 23:02 Completed URINE CULTURE [RM] Routine Lab 02/21/19 23:47 Ordered Albuterol 2.5MG/Ipratrop 0.5MG [Duoneb (A & A)] Med 02/21/19 21:46 Discontinued 3 ml INH NOW ONE Albuterol 2.5MG/Ipratrop 0.5MG [Duoneb (A & A)] Med 02/21/19 23:12 Discontinued 6 ml INH NOW ONE Albuterol [Albuterol Neb] Med 02/21/19 21:47 Discontinued 7.5 mg INH NOW ONE Magnesium Sulfate 2 gm/S.w.i. Med 02/21/19 21:47 Discontinued 2 gm in 50 ml IV NOW Methylprednisolone Sod Succ [Solu-Medrol] Med 02/21/19 21:48 Discontinued 125 mg IV NOW ONE Aerosol Treatments Routine Oth 02/21/19 21:47 Completed Aerosol Treatments Routine Oth 02/21/19 23:12 Completed Aerosol Treatments Stat Oth 02/21/19 21:47 Completed Aerosol Treatments Stat Oth 02/21/19 23:12 Completed Oxygen Device Stat Oth 02/21/19 22:06 Active EKG [EKG] Stat Ther 02/21/19 21:50 Draft Result Diagrams: 02/21/19 21:51 02/21/19 21:51 - REASSESSMENT Reassessment #1 Time Reassessed: 10:45 Status: improving (but continues to have severe wheezing) - CONSULTS/PCP/HOSPITALIST Notification #1 *Consult/PCP/Hospitalist*: d/w Dr Oliva Time Discussed: 23:12 Consult Disposition: Admit (advised to continue steroids and duonebs.) Departure - Departure Date of Disposition Decision: 02/22/19 Time of Disposition Decision: 00:11 DIAGNOSIS: Asthma with severe exacerbation, UTI (urinary tract infection), Respiratory distress, Hypoxia Disposition: ADMITTED INPATIENT 09 Certified Medical Emergency: Emergent Condition: Stable Referrals and Follow-Ups: None,PCP [NON-STAFF PROVIDER] - - Critical Care Note This patient required my direct & personal management of CC.: Yes Total Time (mins): 40 Critical Care Statement: This patient required my direct personal management to treat or rule out processes, the absence of which, could potentiallly result in sudden, clinically significant life or limb threatening deterioration. Attestation - Physician/ FRANK Attestation Patient care was provided by Advanced Practice Provider:: No The physician spent face to face time with patient:: Yes Advanced Practice Provider documentation review:: Supervising physician onsite and consulted in the evaluation and care of this patient. The physician did have a face to face encounter with the patient. This chart was documented by the indicated scribe, (Kristan Vázquez Scribe) and accurately reflects the services I performed and decisions made by me, Fariba Fisher MD, as attested by the provider's signature.
[2019-02-22] MEDS ORDERED: PNEUMOVAX 23 IM ONE (02:31)
[2019-02-22] MEDS ORDERED: FLU VACCINE IM ONE (02:32)
[2019-02-22] MEDS ORDERED: DUONEB (A & A) INH ONE (02:54)
[2019-02-22] MEDS ORDERED: DUONEB (A & A) INH SCH (07:30)
[2019-02-22] MEDS ORDERED: ZOFRAN IV PRN (08:53)
[2019-02-22] MEDS ORDERED: TYLENOL PO PRN ×2 (08:53→14:39)
[2019-02-22] MEDS ORDERED: SALINE LOCK IV FLUID XX ONE (08:53)
[2019-02-22] MEDS ORDERED: KLONOPIN PO PRN (08:57)
[2019-02-22] MEDS ORDERED: LOVENOX SUBQ SCH (09:00)
[2019-02-22] MEDS ORDERED: SOLU-MEDROL IV SCH ×2 (09:00→10:00)
[2019-02-22] MEDS ORDERED: WELLBUTRIN XL PO SCH (09:00)
[2019-02-22] MEDS ORDERED: VANCOMYCIN IV PER PHARMACY MISC SCH ×2 (09:00→14:45)
[2019-02-22 09:10] LABS: BLOOD TYPE ARTERIAL; HCO3-(ACT) 24.1 mmoll (20.0-26.0); METHB 0.8 % (0.0-1.5); O2(CT) 16.1 mL/dL (15.0-23.0); O2HB 95.7 % (95.0-99.0); PCO2(98.6) 42 mmHg (35-45); PO2(98.6) 93 mmHg (60-100); SAMPLE BLOOD; SAO2 98.3 % (95.0-100.0); THB 11.9 g/dL (11.5-17.4); pH(98.6) 7.37 (7.35-7.45)
[2019-02-22 09:14] LABS: ALLEN TEST NO; MODALITY HIGH FLOW NASAL CAN
--- NOTE | 2019-02-22 09:26 | Diag Imaging Result Doc PS360 ---
EXAM: CHEST-PORTABLE HISTORY: hypoxic/resp failure TECHNIQUE: Chest single view COMPARISON: 02/21/2019 FINDINGS: The lungs are well expanded. The heart is not enlarged. The vessels are not distended. There are no infiltrates. No effusion identified. IMPRESSION: Negative exam. Electronically signed by Hayes Omalley 02/22/2019 9:23 AM
[2019-02-22] MEDS ORDERED: DUONEB (A & A) INH PRN ×2 (09:31→14:35)
[2019-02-22] MEDS ORDERED: NORCO-7.5 PO PRN (09:33)
[2019-02-22] MEDS: ZOSYN 3.375 GM in NS 50 ML IV SCH ×3 (09:51→21:51)
[2019-02-22] MEDS ORDERED: VANCOMYCIN 2,000 MG in NS 500 ML IV ONE (10:00)
[2019-02-22 10:04] LABS: BASO# 0.02 X1000 (0.0-0.2); BASO% 0.1 % (0.0-0.8); EOS# 0.01 X1000 (0.0-0.7); EOS% 0.1 % (0.0-10.0); HEMATOCRIT 40.8 % (37.0-47.0); HEMOGLOBIN 12.5 g/dL (12.0-16.0); IMM GRAN# 0.02 X1000 (0.0-0.04); IMM GRAN% 0.1 % (0.0-0.5); LYMPH# 0.92 X1000 (1.2-3.4); LYMPH% 6.8 % (20.5-51.1); MCH 26.9 PG (27-31); MCHC 30.6 g/dL (33-37); MCV 87.9 FL (81-99); MPV 9.4 FL (7.4-10.4); NEUT# 12.08 X1000 (1.4-6.5); NEUT% 89.9 % (42.2-75.2); PLT 299 X1000 (130-400); RBC 4.64 XMIL (4.2-5.4); RDW 16.6 % (11.5-14.5); WBC 13.45 X1000 (4.8-10.8)
[2019-02-22 10:08] LABS: LYMPHS 6 % (21-51); MONO 3 % (1-9); SEGS 91 % (42-75)
[2019-02-22] MEDS ORDERED: NS 1,000 ML IV ONE (10:10)
[2019-02-22] MEDS ORDERED: ATIVAN IV ONE (10:13)
[2019-02-22] MEDS ORDERED: NS 1,000 ML IV SCH ×2 (10:15→15:00)
[2019-02-22 10:22] LABS: AGAP 15; ALBUMIN 4.6 g/dL (3.5-5.0); ALKALINE PHOSPHATASE 114 U/L (32-104); BUN 18 mg/dL (8-22); CHLORIDE 100 mmol/L (98-107); COSMO 288; CREATININE 0.7 mg/dL (0.5-0.9); ESTIMATED GFR > 60; GLUCOSE 223 mg/dL (70-104); GOT 16 U/L (10-30); GPT 11 U/L (10-36); MAGNESIUM 2.2 mg/dL (1.5-2.7); POTASSIUM 5.1 mmol/L (3.5-5.1); SODIUM 140 mmol/L (136-145); TCO2 25 mmol/L (25-35); TOTAL BILIRUBIN < 0.15 mg/dL (0.20-1.00); TOTAL PROTEIN 7.9 g/dL (6.3-8.3)
[2019-02-22] MEDS ORDERED: VALTREX PO SCH (10:25)
[2019-02-22 10:28] LABS: FREE T4 0.9 ng/dL (0.93-1.70); TSH 0.9 uIUmL (0.27-4.20)
[2019-02-22] MEDS ORDERED: ATROVENT NEB INH SCH (11:30)
[2019-02-22] MEDS: XOPENEX NEB INH SCH ×4 (11:50→22:36)
[2019-02-22 11:57] LABS: HEMOGLOBIN A1C 5.8 % (4.8-6.0)
--- NOTE | 2019-02-22 12:15 | HISTORY AND PHYSICAL ---
PRIMARY CARE PROVIDER: Dr. Em. CHIEF COMPLAINT: Shortness of breath, fever. HISTORY OF PRESENT ILLNESS: Ms Nickie Ayala is a 38-year-old female who apparently was diagnosed with asthma in her early 30s. She does not take maintenance medications for this and has been having shortness of breath with wheezing over the last week and a half. The only thing I believe she has taken was guaifenesin. She presented with hypoxia, a very tight chest, expiratory wheezes noted throughout, a tripod posture, very anxious and only coughing up clear to white foamy type phlegm. She states she has had a fever over the last 3 to 4 days with worsening shortness of breath with a fever max of 100. She still continues to wheeze despite having 40 L of high-flow oxygen, IV steroids, respiratory treatments. She is also being treated for her significant anxiety. She is very emotional and crying. Recently on February 06, she had an I and D of a right axillary abscess that tested positive for MRSA for which she is on isolation now. She reports being put on Bactrim for the abscess, but that would not cover MRSA. She was also given Levaquin last month, so everything she has had has been gram-negative coverage. We will get her started on vancomycin, but also noted is she has a left axillary abscess or appears to be an abscess that will probably need to do an ultrasound on. She reports that she would not let them do an incision and drainage on it because the one on the right hurt too much. Currently, we are going to transfer her to [facility] ICU. She is requiring too much oxygen and is still in somewhat distress, especially when she starts to get upset and she does not have a routine observation assistant to help her manage her asthma as she states it is because she does not have insurance and does not take maintenance medications because she cannot afford them, so we will need to get her assistance for that. PAST MEDICAL HISTORY: 1. Right ankle bone , apparently she reports needing a cadaver bone grafting on that, but that has not been done. 2. Depression. 3. Anxiety. 4. Asthma diagnosed in her early 30s. 5. Right axillary abscess, most recently with an I D and positive for MRSA. 6. Left axillary what appears to be an abscess, but has not had an I D on it yet. 7. Seasonal allergies. She used to get 3 shots a week but those stopped 4 years ago. 8. Fever blisters. SURGICAL HISTORY: 1. Tonsillectomy. 2. Sinus surgery and cleaned out multiple polyps. 3. Right ankle surgery post trauma. 4. I D on the right axillary abscess on 02/06/2019. 5. Last mammogram was age 33. She was also a BRCA2 negative. SOCIAL HISTORY: She smoked a pack per day for 23 years. She has weaned herself down to 1 cigarette every 3 days. She occasionally drinks which is only like 1 drink every few months. She smokes marijuana about once a month. Lives in apartment with her boyfriend. She has never been . No children. FAMILY HISTORY: Mother had breast and lung cancer, at age 54. Grandmother had breast cancer, grandfather had MT in his 50s, and she had multiple other females in her family that had breast cancer. ALLERGIES: No known drug allergies. HOME MEDICATIONS: 1. Klonopin 1 mg p.o. twice daily p.r.n. 2. Valtrex 500 mg p.o. daily. 3. Wellbutrin 150 mg p.o. daily. 4. Albuterol Atrovent every 4 hours p.r.n. REVIEW OF SYSTEMS: Fourteen point review of systems are complete and all are negative for those mentioned above in HPI. PHYSICAL EXAMINATION: VITAL SIGNS: Temperature 98.4 degrees, heart rate 112, respiratory rate 26, blood pressure 136/97, O2 saturation 98% on high-flow nasal cannula at 40 L. GENERAL: Ms. Nickie Ayala is a 38-year-old female. She is in mild acute distress with tachypnea. She is very emotional and crying, but she is able answer questions appropriately. HEENT: Atraumatic, normocephalic. Pupils equal, round, reactive to light. Extraocular movements intact. Mucous membranes are moist. NECK: Trachea midline. CARDIOVASCULAR: S1, S2. Tachycardic rate and rhythm. No rubs, gallops, murmurs. No lower extremity edema. +2 dorsalis and radial pulses. Negative JVD or carotid bruits. PULMONARY: Anteriorly and posteriorly she has expiratory wheezes noted throughout with some rhonchi. She is tachypneic, tolerating 40 L high-flow nasal cannula. GASTROINTESTINAL: Soft, nontender, nondistended. Positive bowel sounds x4. EXTREMITIES: Moves all extremities equally. Full range of motion. NEUROLOGIC: Alert and oriented x3. Follows commands. Sensory is intact. SKIN: Warm, dry, intact. LABORATORY DATA: White blood cells 55136, hemoglobin 12, hematocrit 40, platelet count 299,000. D-dimer 0.28. Repeat ABGs on 40 L high-flow nasal cannula, pH 7.37, pCO2 42, PO2 93, bicarb 24, base excess -1, saturation 95%, lactate 3.0. Sodium 140, potassium 5.1, BUN 18, creatinine 0.7, glucose 223, calcium 10. Magnesium 2.2. Bilirubin is less than 0.15, AST 16, ALT 11. Negative cardiac enzymes. ProBNP 37. Albumin 4.6, lactate 3.6, the lactate has gone from on admission it was 1.3, then 2.0, then 2.7, then 3.6, so is steadily climbing. TSH 0.90, free T4 is 0.90. Urinalysis negative. IMAGING: Chest x-ray, negative exam. Repeat chest x-ray also negative exam. She is going to have a CT of the lungs performed. EKG, sinus tachycardia, rate 123. ASSESSMENT AND PLAN: 1. Acute asthma exacerbation with acute hypoxemic respiratory failure requiring at least 40 L of high-flow nasal cannula, which has improved her oxygenation. She has been on steroids, IV antibiotics because she has also ran some subjective fevers at home. There is elevation in her white blood cell count, possibly steroid-induced, but given the fevers, again we are going to get a CT of the lungs to evaluate if there is any type of infectious process as well. We will watch her in the ICU. She is in a tripod position just with increased work of breathing and we will consult Pulmonary to maybe help get her started on something maintenance-tineo too before discharge so she will not have more admissions with her asthma. 2. Anxiety. She has p.r.n. Klonopin, but we will order a 1 time dose of IV Ativan. She is very, very anxious. 3. Depression, noted. 4. Recent right axillary abscess with incision and drainage positive for Methicillin-resistant Staphylococcus aureus. Not seeing any documentation where she was on anything for gram- positive coverage, so she has been started on vancomycin IV, and also there is a left axillary what appears to be another abscess, but she refused for them to do an I and D on it. We will get ultrasound of that and hopefully the vancomycin will help clear that up as well. 5. Signs and symptoms of sepsis. No shock. Lactate is rising, although white count is dropping. We will give her IV fluid boluses. She is on gram positive and gram negative coverage and antibiotics. 6. Seasonal allergies. She is to take 3 shots a week. Of course she said she stopped that about 4 years ago and really has not had any trouble until recent. 7. Deep venous thrombosis prophylaxis. Lovenox. 8. Fever blisters. Continue Valtrex. 9. Hyperglycemia. Likely steroid-induced but we will check a hemoglobin A1c. 10. Mild hypothyroidism. Her T4 is slightly low at 0.90. TSH is normal at 0.90. May start her on low dose of Synthroid 25 mcg daily. 11. Tobacco abuse. Cessation discussed. No nicotine patch at this time. 12. Complains of headache, likely from lower oxygen levels. She can have [place] as needed for pain control. Dictated by CARSIA Thomas for Adithya Chris MD Addendum: Patient seen and examined by myself. Agree with CARISA note. It reflects my assessment and plan. Patient is being admitted to hospital for acute respiratory failure secondary to asthma exacerbation. Considering her high oxygen needs will check CT of thorax and send her to [facility] for Pulmonary evaluation. cc: CARISA Thomas MD Neil Yeager, MD MTDD
[2019-02-22] MEDS: NORCO-7.5 PO PRN ×2 (15:50→22:32)
[2019-02-22] MEDS: KLONOPIN PO PRN (15:50)
[2019-02-22] MEDS: ATROVENT NEB INH SCH ×3 (15:59→22:36)
[2019-02-22] MEDS: SOLU-MEDROL IV SCH (17:35)
--- NOTE | 2019-02-22 18:25 | PROGRESS NOTE ---
DATE: 02/22/2019 INTERVAL HISTORY: She was transferred from [facility] for pulmonology evaluation for status asthmaticus. SUBJECTIVE: She is feeling better now than she was before. She currently has temperature of 98.7 degrees, pulse 124, respiratory 29, and blood pressure 140/100. She is saturating 100% on 50% non- rebreather mask. PHYSICAL EXAMINATION: She is mild to moderate distress. Oral cavity is moist. She has significant decreased air entry and bilateral wheezes. S1, S2 normal. Tachycardic. No murmur, rub or gallop.Abdomen: Soft and nontender. Extremities: No lower extremity edema. Neurologic: She is alert and oriented x3. LABORATORY: Labs are suggestive of mild leukocytosis. ABG suggestive of PO2 of 93 on high-flow nasal cannula. MICROBIOLOGY: Sputum culture and blood culture in lab. IMAGING: Chest x-ray was rather unremarkable. ASSESSMENT AND PLAN: 1. Status asthmaticus. 2. Acute hypoxic respiratory failure. 3. Active tobacco abuse with history of pets at home. However, she was tested negative to be allergic to animal dander. PLAN: Continue albuterol ipratropium nebulization, intravenous steroids. CT scan of thorax was ordered. However, my suspicion for pneumonia is less at the moment. She does not have any risk factor for PE and her D-dimer was negative. I counseled her about smoking cessation. Neurology evaluation pending. TIME SPENT: More than 30 minutes of critical care time was spent taking care of the patient. All of care discussed with her and her family. Her questions have been answered. cc: Jamar Michael MD
[2019-02-22] MEDS ORDERED: PULMICORT INH SCH ×2 (19:30)
[2019-02-22] MEDS: NS 1,000 ML IV SCH (21:43)
--- NOTE | 2019-02-22 22:17 | PULMONOLOGY CONSULTATION ---
DATE: 02/22/2019 HISTORY OF PRESENT ILLNESS: The patient is a 38-year-old white female with asthma, who was diagnosed approximately 6 to 7 years ago. She has not seen an asthma physician for the last 5 years due to loss of insurance. She is frequently going to walk-in clinics for Wellbutrin and Klonopin for her anxiety/depressive disorder and frequently requires steroids. She currently is being evaluated for [*] The patient had an asthma attack in January requiring a 5 day hospital stay. She has had increasing shortness of breath over the last several days and presented to the emergency room in respiratory distress. The patient continues to intermittently smoke. PAST MEDICAL HISTORY: Problem list: 1. Asthma with an eosinophilic phenotype. 2. Allergies with prior allergy injections. 3. Anxiety and depressive disorder. 4. [*] 5. History of severe right ankle fracture with prior surgery. 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 6. History of sinus surgery with polypectomy. 7. Tonsillectomy. SOCIAL HISTORY: Ongoing intermittent tobacco use. Rare alcohol use. Occasional marijuana use. FAMILY HISTORY: Positive for lung cancer, breast cancer, coronary artery disease. REVIEW OF SYSTEMS: Notable for increased cough, increased axillary pain, increasing shortness of breath. PHYSICAL EXAMINATION: General: Reveals a well-developed, well-nourished female who appears her stated age. She is speaking in short sentences. She has increased accessory muscle use. OBJECTIVE: Vital Signs: BP 148/103, heart rate 114, respiratory rate 6, oxygen saturation 98% on Venturi mask. HEENT: Pupils are equal and reactive. Oropharynx appears clear. Neck: Supple. Chest: Reveals diminished breath sounds bilaterally with prolonged expiratory phase and distant wheezing. Cardiac Exam: S1-S2. Abdomen: Soft. Extremities: Without edema. LABORATORIES: White blood count on admission was 18.0 with a 16.5% eosinophil percentage and a total eosinophil count of 2980. Arterial blood gas reveals a pH 7.37, pCO2 of 42, PO2 of 93 with a lactate of 3 on 50% high-flow O2. IMPRESSION: A 38-year-old with 1. Status asthmaticus. 2. Ongoing tobacco use. 3. Eosinophilia. 4. Mild lactic acidosis, likely related to asthma exacerbation. 5. Status post nasal polypectomy. 6. Inadequate asthma management due to financial and insurance status. RECOMMENDATIONS: 1. Agree with steroid dosing. 2. Continue bronchodilators. 3. Agree with continuing her anxiolytics. 4. Attempt to enroll her in the [facility] program to see if we can obtain outpatient asthma medicines. She needs at a minimum a high dose inhaled corticosteroid. With her severe asthma and eosinophilia, she would likely benefit from a new eosinophilic drug such as Nucala or Fasenra, but it is unlikely she can get these medications without insurance. cc: Yosi Kelley MD
[2019-02-23] MEDS: SOLU-MEDROL IV SCH ×3 (01:08→17:07)
[2019-02-23] MEDS: ZOSYN 3.375 GM in NS 50 ML IV SCH ×4 (03:16→20:15)
[2019-02-23] MEDS: VANCOMYCIN 1,750 MG in NS 250 ML IV SCH ×2 (03:17→22:18)
[2019-02-23] MEDS: ATROVENT NEB INH SCH ×6 (03:22→23:55)
[2019-02-23] MEDS: XOPENEX NEB INH SCH ×6 (03:22→23:55)
[2019-02-23] MEDS ORDERED: VANCOMYCIN 1,750 MG in NS 250 ML IV SCH (04:00)
[2019-02-23 04:40] LABS: ALLEN TEST YES; BE -2.1 mmoll (-3.0-3.0); BLOOD TYPE ARTERIAL; HCO3-(ACT) 23.3 mmoll (20.0-26.0); METHB 0.9 % (0.0-1.5); O2(CT) 15.2 mL/dL (15.0-23.0); O2HB 96.8 % (95.0-99.0); PCO2(98.6) 47 mmHg (35-45); PO2(98.6) 128 mmHg (60-100); SAMPLE BLOOD; SAO2 98.6 % (95.0-100.0); pH(98.6) 7.32 (7.35-7.45)
[2019-02-23 04:41] LABS: MODALITY VENTIMASK
[2019-02-23] MEDS: PROTONIX PO SCH (06:08)
[2019-02-23] MEDS ORDERED: SYNTHROID PO SCH ×2 (07:00)
[2019-02-23] MEDS ORDERED: PROTONIX PO SCH (07:00)
[2019-02-23 07:12] LABS: BASO# 0.01 X1000 (0.0-0.2); BASO% 0.1 % (0.0-0.8); EOS# 0.02 X1000 (0.0-0.7); EOS% 0.1 % (0.0-10.0); HEMATOCRIT 35.4 % (37.0-47.0); HEMOGLOBIN 10.4 g/dL (12.0-16.0); IMM GRAN# 0.06 X1000 (0.0-0.04); IMM GRAN% 0.3 % (0.0-0.5); LYMPH% 4.8 % (20.5-51.1); MCHC 29.4 g/dL (33-37); MCV 91.9 FL (81-99); MONO# 0.82 X1000 (0.11-0.59); MONO% 4.4 % (1.7-9.3); MPV 10.3 FL (7.4-10.4); NEUT# 16.95 X1000 (1.4-6.5); NEUT% 90.3 % (42.2-75.2); PLT 260 X1000 (130-400); RBC 3.85 XMIL (4.2-5.4); RDW 16.7 % (11.5-14.5); WBC 18.76 X1000 (4.8-10.8)
[2019-02-23 07:40] LABS: LYMPHS 6 % (21-51); MONO 2 % (1-9); SEGS 92 % (42-75)
[2019-02-23] MEDS: VALTREX PO SCH (09:15)
[2019-02-23] MEDS: LOVENOX SUBQ SCH (09:15)
[2019-02-23] MEDS: NS 1,000 ML IV SCH (09:15)
[2019-02-23] MEDS: WELLBUTRIN XL PO SCH (09:15)
[2019-02-23 09:48] LABS: AGAP 13; ALB/GLOB RATIO 1.2; ALBUMIN 3.5 g/dL (3.5-5.0); ALKALINE PHOSPHATASE 106 U/L (32-104); BUN 15 mg/dL (8-22); CALCIUM 8.7 mg/dL (8.8-10.2); CHLORIDE 106 mmol/L (98-107); COSMO 286; CREATININE 0.8 mg/dL (0.5-0.9); ESTIMATED GFR > 60; GLUCOSE 194 mg/dL (70-104); GOT 22 U/L (10-30); GPT 15 U/L (10-36); POTASSIUM 5.3 mmol/L (3.5-5.1); SODIUM 140 mmol/L (136-145); TCO2 21 mmol/L (25-35); TOTAL BILIRUBIN < 0.15 mg/dL (0.20-1.00); TOTAL PROTEIN 6.5 g/dL (6.3-8.3)
--- NOTE | 2019-02-23 11:07 | Diag Imaging Result Doc PS360 ---
EXAM: CT THORAX W/CONTRAST INDICATION: sob, asthma exacerbation TECHNIQUE: This exam was performed using automated exposure control, adjustment of mA or kV according to patient size, and/or use of iterative reconstruction technique. COMPARISON: None. FINDINGS: There are mild patchy groundglass opacities involving both upper lobes, both lower lobes, as well as the right middle lobe suggesting multilobar pneumonia. In the lingula on image 73 of series 3, there is a 9 mm nodular density with a tiny focus of internal cavitation. There is focal mild bronchiectasis at the medial right lower lobe with an adjacent 11 mm nodule that can be seen on image 84 of series 3. These nodules are probably infectious. There is no pleural fluid collection and no pneumothorax. There is no cardiomegaly. There is no evidence of significant mediastinal or hilar lymphadenopathy. No pulmonary artery filling defects can be identified. Limited views of the upper abdomen are essentially unremarkable. IMPRESSION: 1.Multifocal mild groundglass infiltrates indicating multilobar pneumonia. 2.Small cavitary nodule in the lingula and another nodule with adjacent bronchiectasis in the medial right lower lobe. These nodules are probably related to an atypical infection. Please correlate clinically. Electronically signed by Shaquille Avina 02/23/2019 11:04 AM
--- NOTE | 2019-02-23 11:34 | PROGRESS NOTE ---
DATE: 02/23/2019 INTERVAL HISTORY: No acute events overnight. She states she had a good sleep. In the morning time, she denies new complaints. She is still audibly wheezing. VITALS: Temperature 97.3 degrees, pulse 109, respiratory rate 29, blood pressure 117/89, saturating 96% on 50% Ventimask. PHYSICAL EXAMINATION: Significant wheezing in bilateral lung cassidy. No crackles. S1, S2 normal, tachycardic. No murmur, rub, or gallop. Abdomen: Soft, nontender. No lower extremity edema. I advised her to eat softer and workday senior associate food. ABG suggestive of slight hypercarbia and respiratory acidosis, mild hyperkalemia and low bicarbonate. MICROBIOLOGY: No positive data. IMAGING: No positive data so far. ASSESSMENT AND PLAN: 1. Status asthmaticus and acute hypoxic respiratory failure. She does have mild hypercarbia on ABG. I will keep a close eye over her respiratory and mentation. Continue albuterol- ipratropium nebulization, intravenous steroids, pantoprazole, and intravenous antibiotics. Follow up blood culture and sputum culture results. 2. Anxiety. Continue her home bupropion, clonazepam. 3. Deep venous thrombosis prophylaxis, enoxaparin. 4. Disposition. More than 30 minutes of critical care time were spent taking care of this patient. I will continue to monitor the patient in the intensive care unit. cc: Jamar Michael MD
[2019-02-23] MEDS: KLONOPIN PO PRN (22:28)
[2019-02-24] MEDS: NS 1,000 ML IV SCH ×2 (01:00→13:44)
[2019-02-24] MEDS: NORCO-7.5 PO PRN (01:06)
[2019-02-24] MEDS: SOLU-MEDROL IV SCH ×3 (01:57→17:22)
[2019-02-24] MEDS: XOPENEX NEB INH SCH ×6 (03:35→23:38)
[2019-02-24] MEDS: ATROVENT NEB INH SCH ×6 (03:35→23:38)
[2019-02-24] MEDS: ZOSYN 3.375 GM in NS 50 ML IV SCH ×2 (03:44→08:21)
[2019-02-24 04:24] LABS: ALLEN TEST YES; BE 2.9 mmoll (-3.0-3.0); BLOOD TYPE ARTERIAL; HCO3-(ACT) 27.2 mmoll (20.0-26.0); METHB 0.9 % (0.0-1.5); PCO2(98.6) 44 mmHg (35-45); PO2(98.6) 132 mmHg (60-100); SAMPLE BLOOD; THB 10.1 g/dL (11.5-17.4); pH(98.6) 7.41 (7.35-7.45)
[2019-02-24 04:25] LABS: MODALITY VENTIMASK
--- NOTE | 2019-02-24 04:55 | PULMONOLOGY PROGRESS NOTE ---
DATE: 02/23/2019 SUBJECTIVE: The patient is awake, alert, and conversant. She is without specific complaints. She reports her breathing is improving. OBJECTIVE: The patient has been afebrile for the last 24 hours. Blood pressure 126/82, heart rate 94, respiratory rate 20, and oxygen saturation 97%.HEENT: Pupils are equal and reactive. Oropharynx appears clear. Neck: Supple. Lungs: Chest reveals diffuse wheezing bilaterally. Cardiac: S1 and S2. Abdomen: Soft. Extremities: Without edema. LABORATORIES: CT scan of the thorax revealed patchy ground-glass changes relating to possible pneumonia or air trapping, small cavitary nodule in the lingula with adjacent bronchiectasis. White blood count 18.76, hemoglobin 10.4, and platelet count 260,000. Arterial blood gas pH 7.32, pCO2 of 47, and PO2 of 128. IMPRESSION: A 38-year-old with the followin. Status asthmaticus. 2. Peripheral eosinophilia. 3. Mild lactic acidosis. 4. Poorly managed asthma due to financial issues. PLAN: 1. Continue current steroid dosing. 2. Continue current antibiotics, but consider an oral regimen. 3. Continue bronchodilators. 4. Recommend enrollment in the [facility] program to help the patient obtain asthma medications. I suspect that she will not be able to obtain the newer more expensive treatments for asthma which she might benefit. cc: Yosi Kelley MD
[2019-02-24] MEDS: PROTONIX PO SCH (06:13)
[2019-02-24 06:19] LABS: BASO# 0.01 X1000 (0.0-0.2); BASO% 0.1 % (0.0-0.8); HEMATOCRIT 32.7 % (37.0-47.0); HEMOGLOBIN 9.6 g/dL (12.0-16.0); IMM GRAN# 0.03 X1000 (0.0-0.04); IMM GRAN% 0.2 % (0.0-0.5); LYMPH# 1.21 X1000 (1.2-3.4); LYMPH% 8.6 % (20.5-51.1); MCH 27.1 PG (27-31); MCHC 29.4 g/dL (33-37); MCV 92.4 FL (81-99); MONO# 0.79 X1000 (0.11-0.59); MONO% 5.6 % (1.7-9.3); MPV 10.3 FL (7.4-10.4); NEUT# 12.09 X1000 (1.4-6.5); NEUT% 85.5 % (42.2-75.2); PLT 257 X1000 (130-400); RBC 3.54 XMIL (4.2-5.4); WBC 14.13 X1000 (4.8-10.8)
[2019-02-24 06:37] LABS: AGAP 11; ALB/GLOB RATIO 1.2; ALBUMIN 3.3 g/dL (3.5-5.0); ALKALINE PHOSPHATASE 92 U/L (32-104); BUN 20 mg/dL (8-22); CALCIUM 8.4 mg/dL (8.8-10.2); CHLORIDE 104 mmol/L (98-107); COSMO 287; CREATININE 0.8 mg/dL (0.5-0.9); ESTIMATED GFR > 60; GLUCOSE 184 mg/dL (70-104); GOT 19 U/L (10-30); GPT 20 U/L (10-36); POTASSIUM 4.7 mmol/L (3.5-5.1); SODIUM 140 mmol/L (136-145); TCO2 25 mmol/L (25-35); TOTAL BILIRUBIN < 0.15 mg/dL (0.20-1.00); TOTAL PROTEIN 6.1 g/dL (6.3-8.3)
[2019-02-24 07:31] LABS: LYMPHS 3 % (21-51); MONO 3 % (1-9); SEGS 94 % (42-75)
[2019-02-24] MEDS: WELLBUTRIN XL PO SCH (08:21)
[2019-02-24] MEDS: KLONOPIN PO PRN ×2 (08:21→17:44)
[2019-02-24] MEDS: VALTREX PO SCH (08:21)
--- NOTE | 2019-02-24 09:09 | PROGRESS NOTE ---
DATE: 02/24/2019 INTERVAL HISTORY: She underwent CT scan yesterday which had detected multifocal atypical pneumonia. She has been breathing well on Ventimask. In the morning time she states she is feeling better in terms of her shortness of breath and she is denying any chest pain. She still has occasional cough. VITAL SIGNS: Temperature of 97 degrees, pulse 85, respiratory rate 16, blood pressure 130/90, saturating 99% on 35% Ventimask. PHYSICAL EXAMINATION: General: Not in acute distress. HEENT: Oral cavity is moist. Respiratory: She has improved air entry bilateral lung cassidy, though she still has expiratory wheezes bilaterally. Cardiovascular: S1, S2 normal. Not tachycardic. No murmur, rub or gallop. Abdomen: Soft, nontender. Extremities: No lower extremity edema. Left axilla has about a 3 x 3 cm indurated erythematous area. LABORATORY DATA: Suggestive of improving leukocytosis with 0% eosinophil count, normocytic anemia. Her ABG suggests improvement in PO2 on Venturi mask. Electrolytes are essentially normal. No positive microbiological data. IMAGING: Chest CT yesterday had multifocal ground-glass infiltrates indicating multilobar pneumonia, small cavitary nodule in the lingula and another nodule adjacent to bronchiectasis in the medial right lobe, probably related to atypical infection. ASSESSMENT AND PLAN: 1. Status asthmaticus and acute hypoxic respiratory failure, now gradually improving. Continue albuterol ipratropium nebulization, intravenous steroids, pantoprazole for stress ulcer prophylaxis and change antibiotics to oral. Follow up final culture data. 2. Left axillary nodule. She has had a significant family history of breast cancer and her last mammogram was almost 6 years ago. I will get an ultrasound to evaluate the nodule to rule out any abnormal axillary lymph nodes. 3. Anxiety. Continue home bupropion and clonazepam. 4. Deep venous thrombosis prophylaxis. Enoxaparin. DISPOSITION: I will transition patient to PVC unit. Plan of care discussed with her. Her questions have been answered. cc: Jamar Michael MD
[2019-02-24] MEDS: LOVENOX SUBQ SCH (10:00)
[2019-02-24] MEDS: ZITHROMAX PO SCH (10:20)
[2019-02-24] MEDS: CEFTIN PO SCH ×2 (10:21→22:00)
--- NOTE | 2019-02-24 11:23 | Diag Imaging Result Doc PS360 ---
EXAM: US BREAST LIMITED UNILAT-LT HISTORY: Evaluate for abscess vs lymph node left axilla TECHNIQUE: Limited left axillary ultrasound COMPARISON: None. FINDINGS: Ultrasound of the left axilla performed. No solid mass identified. No well-defined fluid collection. No area posterior shadowing. IMPRESSION: Negative exam. Electronically signed by Hayes Omalley 02/24/2019 11:21 AM
--- NOTE | 2019-02-24 21:19 | PULMONOLOGY PROGRESS NOTE ---
DATE: 02/24/2019 SUBJECTIVE: The patient is awake, alert, and conversant. She reports her breathing is improving. OBJECTIVE: Vital Signs: The patient has been afebrile for the last 24 hours. Blood pressure 129/78, heart rate 104, respiratory rate 20, oxygen saturation 100% on 2 L nasal cannula. HEENT: Pupils are equal and reactive. Oropharynx appears clear. Neck: Supple. Chest: Reveals wheezing on forced exhalation with a wet cough. Cardiac: S1, S2. Abdomen: Soft. Extremities: Without edema. IMPRESSION: 1. Status asthmaticus. 2. Peripheral eosinophilia. 3. Poorly-controlled asthma due to find constraints. PLAN: 1. Continue current steroid dosing. 2. Continue antibiotics. Consider initiation of azithromycin or similar agent. 3. Continue bronchodilators. 4. Initiate a high dose inhaled corticosteroid along with a long-acting beta agonist. The patient will need this medication at discharge. I will initiate her on fluticasone and salmeterol. Other options could be utilized if more cost efficient. cc: Yosi Kelley MD
[2019-02-24] MEDS ORDERED: CALMOSEPTINE OINTMENT TOP PRN (22:15)
[2019-02-24] MEDS: ADVAIR 500/50 DISKUS INH SCH (23:21)
[2019-02-25] MEDS: NS 1,000 ML IV SCH (01:59)
[2019-02-25] MEDS: SOLU-MEDROL IV SCH ×2 (02:36→09:06)
[2019-02-25] MEDS: ATROVENT NEB INH SCH ×6 (03:14→23:08)
[2019-02-25] MEDS: XOPENEX NEB INH SCH ×6 (03:14→23:08)
[2019-02-25 06:08] LABS: BASO# 0.01 X1000 (0.0-0.2); BASO% 0.1 % (0.0-0.8); HEMATOCRIT 34.4 % (37.0-47.0); HEMOGLOBIN 10.2 g/dL (12.0-16.0); IMM GRAN# 0.05 X1000 (0.0-0.04); IMM GRAN% 0.6 % (0.0-0.5); LYMPH# 1.01 X1000 (1.2-3.4); LYMPH% 11.8 % (20.5-51.1); MCH 27.3 PG (27-31); MCHC 29.7 g/dL (33-37); MCV 92.2 FL (81-99); MONO# 0.39 X1000 (0.11-0.59); MONO% 4.6 % (1.7-9.3); MPV 10.2 FL (7.4-10.4); NEUT# 7.11 X1000 (1.4-6.5); NEUT% 82.9 % (42.2-75.2); PLT 266 X1000 (130-400); RBC 3.73 XMIL (4.2-5.4); WBC 8.57 X1000 (4.8-10.8)
[2019-02-25 06:44] LABS: AGAP 13; ALB/GLOB RATIO 1.2; ALBUMIN 3.5 g/dL (3.5-5.0); ALKALINE PHOSPHATASE 100 U/L (32-104); BUN 19 mg/dL (8-22); CALCIUM 8.1 mg/dL (8.8-10.2); CHLORIDE 106 mmol/L (98-107); COSMO 293; CREATININE 0.8 mg/dL (0.5-0.9); ESTIMATED GFR > 60; GLUCOSE 240 mg/dL (70-104); GOT 15 U/L (10-30); GPT 20 U/L (10-36); POTASSIUM 3.9 mmol/L (3.5-5.1); SODIUM 142 mmol/L (136-145); TCO2 23 mmol/L (25-35); TOTAL BILIRUBIN < 0.15 mg/dL (0.20-1.00); TOTAL PROTEIN 6.5 g/dL (6.3-8.3)
[2019-02-25] MEDS: PROTONIX PO SCH (07:40)
[2019-02-25] MEDS: VALTREX PO SCH (09:06)
[2019-02-25] MEDS: LOVENOX SUBQ SCH (09:06)
[2019-02-25] MEDS: CEFTIN PO SCH ×2 (09:06→21:19)
[2019-02-25] MEDS: WELLBUTRIN XL PO SCH (09:06)
[2019-02-25] MEDS: ZITHROMAX PO SCH (09:06)
[2019-02-25] MEDS ORDERED: BENADRYL CREAM TOP PRN (10:32)
--- NOTE | 2019-02-25 11:00 | PROGRESS NOTE ---
DATE: 02/25/2019 INTERVAL HISTORY: No acute events overnight. She states that she was not sure whether she would be able to afford the inhaled long-acting bronchodilator as well as inhaled steroids, so she did not take it. I discussed with her that I would involve my Associate team to see if they could offer some help. VITAL SIGNS: Currently, temperature 97.6 degrees, pulse 109, respiratory 18, blood pressure 140/90, saturating 96% on room air. She states her breathing is significantly better. She is still coughing. PHYSICAL EXAMINATION: General: Not in acute distress. HEENT: Oral cavity is moist. Lungs: Air entry bilaterally equal. Only minimal wheezes. No rhonchi or crackles. Cardiovascular: S1, S2 normal. No murmur, rub or gallop. Abdomen: Soft, nontender. Extremities: No lower extremity edema. Neurologic: She is alert and oriented x3, not in any acute distress. IMAGING: I discussed with her about ultrasound finding that it could be just folliculitis. LABORATORY DATA: Her CBC is rather unremarkable. BMP is also unremarkable except hyperglycemia. Sputum culture, urine culture, blood cultures have been negative. ASSESSMENT: 1. Status asthmaticus and acute hypoxic respiratory failure, now improved. 2. Left axillary nodule, likely folliculitis. She should have outpatient followup. 3. Anxiety. PLAN: Continue albuterol ipratropium nebulization as well as fluticasone salmeterol. [facility] referral has been made. Based on that, I will decide either to discharge her on Advair versus Symbicort. Continue azithromycin and cefuroxime. My plan is to taper intravenous steroids in the next 24 hours. I will also continue her home bupropion and clonazepam as needed for anxiety. She is on pantoprazole for stress ulcer prophylaxis and enoxaparin for DVT prophylaxis. DISPOSITION: I will continue to monitor patient in PVC as I plan transitioning her intravenous steroids. Plan of care discussed with her. Her questions have been answered. cc: Jamar Michael MD
[2019-02-25] MEDS: ADVAIR 500/50 DISKUS INH SCH ×2 (11:10→19:22)
[2019-02-25] MEDS: PREDNISONE PO SCH (21:19)
[2019-02-26] MEDS: ATROVENT NEB INH SCH ×6 (03:32→22:41)
[2019-02-26] MEDS: XOPENEX NEB INH SCH ×6 (03:32→22:41)
[2019-02-26 06:10] LABS: BASO# 0.01 X1000 (0.0-0.2); BASO% 0.1 % (0.0-0.8); EOS# 0.01 X1000 (0.0-0.7); EOS% 0.1 % (0.0-10.0); HEMATOCRIT 32.6 % (37.0-47.0); HEMOGLOBIN 9.6 g/dL (12.0-16.0); IMM GRAN# 0.09 X1000 (0.0-0.04); IMM GRAN% 1.2 % (0.0-0.5); LYMPH# 1.19 X1000 (1.2-3.4); LYMPH% 16.3 % (20.5-51.1); MCH 27.4 PG (27-31); MCHC 29.4 g/dL (33-37); MCV 93.1 FL (81-99); MONO# 0.54 X1000 (0.11-0.59); MONO% 7.4 % (1.7-9.3); MPV 9.9 FL (7.4-10.4); NEUT# 5.44 X1000 (1.4-6.5); NEUT% 74.9 % (42.2-75.2); PLT 277 X1000 (130-400); RDW 16.7 % (11.5-14.5); WBC 7.28 X1000 (4.8-10.8)
[2019-02-26] MEDS: PROTONIX PO SCH (06:15)
[2019-02-26 06:51] LABS: AGAP 14; ALB/GLOB RATIO 1.4; ALBUMIN 3.4 g/dL (3.5-5.0); ALKALINE PHOSPHATASE 111 U/L (32-104); BUN 19 mg/dL (8-22); CALCIUM 8.5 mg/dL (8.8-10.2); CHLORIDE 105 mmol/L (98-107); COSMO 291; CREATININE 0.8 mg/dL (0.5-0.9); ESTIMATED GFR > 60; GLUCOSE 203 mg/dL (70-104); GOT 11 U/L (10-30); GPT 17 U/L (10-36); POTASSIUM 4.4 mmol/L (3.5-5.1); SODIUM 142 mmol/L (136-145); TCO2 23 mmol/L (25-35); TOTAL BILIRUBIN < 0.15 mg/dL (0.20-1.00); TOTAL PROTEIN 5.9 g/dL (6.3-8.3)
[2019-02-26] MEDS: ADVAIR 500/50 DISKUS INH SCH ×2 (08:00→19:15)
[2019-02-26] MEDS: CEFTIN PO SCH ×2 (08:17→21:24)
[2019-02-26] MEDS: VALTREX PO SCH (08:17)
[2019-02-26] MEDS: ZITHROMAX PO SCH (08:17)
[2019-02-26] MEDS: WELLBUTRIN XL PO SCH (08:17)
[2019-02-26] MEDS: PREDNISONE PO SCH ×2 (08:17→21:24)
[2019-02-26] MEDS: LOVENOX SUBQ SCH (10:07)
--- NOTE | 2019-02-26 12:36 | PROGRESS NOTE ---
DATE: 02/26/2019 INTERVAL HISTORY: No acute events overnight. The patient states that since yesterday, when her steroid was changed from IV to p.o., she has been feeling a little more congested and she has been coughing a lot, and then she had to put her oxygen back on. She states that often times previously in the past, she had to be put on 60 mg of prednisone twice a day to achieve remission of her asthma symptoms. We also discussed about social service director working on trying to help her get her Symbicort or Advair. We decided to keep her inside the hospital since she is a little wheezy today. VITALS: Currently, temperature of 98 degrees, pulse 106, respiratory 21, blood pressure 137/87. She is saturating 100% on room air. PHYSICAL EXAMINATION: Not in acute distress. Oral cavity is moist. Lungs: Air entry bilaterally equal. She has mild end-expiratory wheezes, which is worse than yesterday. No rhonchi or crackles. S1, S2 normal. No murmur, rub, or gallop. Abdomen is soft, nontender. No lower extremity edema. She was alert and oriented x3, not in acute distress though. LABS: Suggestive of normocytic anemia, normal platelet count. Her electrolytes also normal. No positive microbiological data. ASSESSMENT AND PLAN: 1. Status asthmaticus with acute hypoxic respiratory failure with moderate to severe persistent asthma. Continue albuterol-ipratropium nebulization. Increase oral steroid dose and give her additional intravenous steroid dose. Continue pantoprazole for steroid- induced ulcer prophylaxis. banking services advisor team currently working on to see if she could be availed of any inhaled steroids. However, the [facility] does not have coverage for it at the moment. 2. Multifocal pneumonia: Continue Cefuroxime and Azithromycin. 2. Left axillary nodule, likely folliculitis. She should get outpatient followup. 3. Anxiety. Continue as-needed clonazepam and as-needed [place] for pain. DISPOSITION: I will monitor patient in the hospital for 1 more day. Plan of care discussed with her. Her questions have been answered. cc: MD WILLARD Lundberg
[2019-02-26] MEDS ORDERED: SOLU-MEDROL IV ONE (14:00)
[2019-02-27] MEDS: XOPENEX NEB INH SCH ×3 (03:40→11:15)
[2019-02-27] MEDS: ATROVENT NEB INH SCH ×3 (03:40→11:15)
[2019-02-27] MEDS: PROTONIX PO SCH (06:38)
[2019-02-27] MEDS: ADVAIR 500/50 DISKUS INH SCH (07:53)
[2019-02-27] MEDS: VALTREX PO SCH (08:16)
[2019-02-27] MEDS: ZITHROMAX PO SCH (08:16)
[2019-02-27] MEDS: WELLBUTRIN XL PO SCH (08:16)
[2019-02-27] MEDS: PREDNISONE PO SCH (08:16)
[2019-02-27] MEDS: CEFTIN PO SCH (08:16)
[2019-02-27] MEDS: KLONOPIN PO PRN (08:27)
[2019-02-27 08:33] VITALS: BP 133/98
--- NOTE | 2019-02-28 07:14 | DISCHARGE SUMMARY ---
ADMISSION DATE: 02/22/2019 DISCHARGE DATE: 02/27/2019 DISCHARGE DISPOSITION: Home. DISCHARGE CONDITION: Hemodynamically stable. She is breathing well on room air. No longer wheezing. She has been provided a coupon for [email or web address] for a 1 year supply. DISCHARGE DIAGNOSES: 1. Status asthmaticus. 2. Acute hypoxic respiratory failure. 3. Moderate to severe persistent asthma. 4. Multifocal pneumonia. 5. Left axillary nodule, likely folliculitis. OTHER DIAGNOSES: 1. History of persistent asthma. 2. History of financial issues in acquiring inhaled corticosteroids with recurrent asthma exacerbation. 3. History of anxiety. 4. History of MRSA right axillary abscess requiring incision and drainage. 5. Positive family history of multiple members having breast cancer. DISCHARGE MEDICATIONS: 1. Clonazepam 1 mg b.i.d. as needed for anxiety. 2. Valacyclovir 500 mg daily. 3. Bupropion 150 mg daily. 4. Cefuroxime 500 mg every 12 hours for 3 days. 5. Prednisone for a total of 12 days, take 60 mg b.i.d. for 3 days, 40 mg b.i.d. for 3 days, 20 mg b.i.d. for 3 days, 10 mg b.i.d. for 3 days and stop. 6. Pantoprazole 40 mg daily for 15 days. 7. Budesonide formoterol 160 4.5 mcg inhaler 6 g inhalation b.i.d., one inhaler with 2 refills have been prescribed. 8. Azithromycin 500 mg daily for 3 days. VITALS: At the time of discharge, temperature 98.6 degrees, pulse 91, respiratory rate 14, blood pressure 133/98, and saturating 98% on room air. PHYSICAL EXAMINATION: At discharge, oral cavity is moist. Not in acute distress. Lungs: Air entry bilaterally equal. No wheeze, rhonchi, crackles. Cardiovascular: S1, S2 normal. No murmur or gallop. Abdomen: Soft, nontender. Extremities: No lower extremity edema. Neurologic: She is alert and oriented x3. LABORATORY: At the time of discharge, WBC 7.2, hemoglobin 9.6, and platelets 277,000. Her last ABG had a pH of 7.4, PO2 of 132, and pCO2 of 44 on 35% Ventimask. Her BMP had BUN of 19, creatinine of 0.8, potassium of 4.4, and sodium of 142. Her blood sugar was 203. MICROBIOLOGY: Blood cultures, sputum culture, and urine culture were negative. SIGNIFICANT IMAGING DURING HOSPITAL ADMISSION: Chest x-ray on admission did not have any acute pathology. Chest CT performed had multifocal mild ground-glass infiltrates indicating multi lobe pneumonia, small cavitary nodule on the lingula, and another nodule with adjusted bronchiectasis in the medial right lower lobe, probably related to atypical infection. HOSPITAL COURSE SUMMARY: Ms. Ayala is a 38-year-old female who had initially presented to [facility] on 02/22/2019 with chief complaints of shortness of breath and fever. At the hospital admission, she was found to have fever of 100 degrees Fahrenheit, and had leukocytosis of 18,000. She was found to be in asthma exacerbation. She also had eosinophilia with eosinophil count of 16% so she was started on bronchodilators, intravenous steroids, and was transferred to [facility] for further management in the ICU. Chest CT had detected multiple focal infiltrates suggestive of pneumonia. She was started on broad-spectrum intravenous antibiotics, bronchodilator, and intravenous steroids, on which she improved. At the time of discharge, she was advised to have follow up with her regular physician lung doctor to discuss about repeat CT scan since she had a nodular opacity suggestive of atypical infection, and discussed the need for repeat CT. She was also prescribed a long taper of steroids antibiotics. TIME SPENT: More than 30 minutes spent in discharging the patient. Plan of care discussed with her. All of her questions were answered. cc: Jamar Michael MD
== END 2019-02-27 12:46 | disposition home or self-care (01) | DRG 189 ==
LOC: P.ED 21:27 → SUATTDRO 02-22 01:06 → P.MEDSURG 02-22 01:06 → ICU 02-22 14:25 → 2N 02-24 15:29
PROVIDERS: ATTEND Internal Medicine

== ENCOUNTER 2019-04-29 21:19 | Inpatient (IN) ==
[2019-04-29] MEDS ORDERED: DUONEB (A & A) INH ONE ×2 (21:24→21:49)
[2019-04-29] MEDS ORDERED: MAGNESIUM SULFATE 1 GM/D5W 1 GM/100 ML IVPB IV ONE (21:28)
[2019-04-29] MEDS ORDERED: SOLU-MEDROL IV ONE (21:28)
--- NOTE | 2019-04-29 21:36 | PROVIDER DOCUMENTATION ---
HPI-Respiratory General - General Chief Complaint: Asthma Attack Stated Complaint: SOB Time Seen by Provider: 04/29/19 21:25 Source: patient Allergies/Adverse Reactions: Patient Allergies Allergy/AdvReac Type Severity Reaction Status Date / Time No Known Allergies Allergy Verified 02/21/19 21:35 Home Medications: Home Medication List Medication Instructions Recorded Confirmed Last Taken Type Bupropion HCl [Wellbutrin Xl] 150 mg PO DAILY 01/05/19 04/29/19 Unknown History Albuterol 2.5MG/Ipratrop 0.5MG 3 ml INH RTQ4H #120 neb 01/09/19 04/29/19 Unknown Rx [Duoneb (A & A)] Albuterol Sulfate Inhaler 2 puff INH Q6H PRN PRN #1 inhaler 02/27/19 04/29/19 Unknown Rx [Ventolin Hfa] Budesonide/Formoterol Fumarate 6 gm INHALATION BID #1 hfa.aer.ad 02/27/19 04/29/19 Unknown Rx [Symbicort 160-4.5 Mcg Inhaler] - History of Present Illness-Resp Nature of Presenting Problem: 38 YOF WITH PMH OF ASTHMA WITH MULTIPLE ADMISSION FOR EXACERBATION PRESENTS WITH C/O SOB, WHEEZING SINCE 4-6 HOURS AGO, BREATHING TX AND ADVAIR AT HOME DID NOT IMRPOVE SYMPTOMS. SHE CONTINUES TO SMOKE. SPEAKING IN FULL SENTENCES BUT IS SOB . SHE HAS PREVIOUSLY BEEN ADMITTED TO ICU FOR MANAGEMENT OF ASTHMA Quality of Pain: reports: none Severity in ED: reports: severe Onset/Duration: reports: 4-6 hours ago Timing: reports: still present Cough Quality/Degree: reports: moderate Episode Frequency: frequent episodes Current Respiratory Medication Therapy: Not Used albuterol/atrovent inhale, Not Used A/A nebulizer, Not Used steroid inhaler Modifying Factors: worse with: exertion, albuterol inhaler, albuterol nebulizer Associated Symptoms: reports: cough, shortness of breath, wheezing Similar Symptoms Previously?: Yes Recently seen or treated by another doctor?: No Review of Systems - Adult - REVIEW OF SYSTEMS - ADULT Constitutional: reports: no symptoms reported. denies: see HPI, chills, fever, fatique, night sweats, weight gain, weight loss, other Eyes: reports: no symptoms reported. denies: see HPI, discharge, dry eyes, decreased vision, blurred vision, double vision, eye pain, redness, other Ears, Nose, Mouth & Throat: reports: no symptoms reported. denies: see HPI, ear discharge, ear pain, hearing loss, tinnitus, epistaxis, sinus problem, nose pain, loose teeth, mouth/dental pain, mouth swelling, hoarseness, throat pain, throat swelling, other Cardiovascular: reports: no symptoms reported. denies: see HPI, chest pain, edema, heart murmur, irregular heart rate, orthopnea, palpitations, poor circulation, PND, syncope, other Respiratory: reports: see HPI, cough, shortness of breath, wheezing. denies: no symptoms reported, chronic cough, dyspnea on exertion, excessive sputum production, hemoptysis, pleurisy, other Gastrointestinal: reports: no symptoms reported. denies: see HPI, abdominal pain, hematemesis, constipation, diarrhea, difficulty swallowing, frequent heartburn, nausea, poor appetite, rectal bleeding, vomiting, other Genitourinary: reports: no symptoms reported. denies: see HPI, dysuria, discharge, frequency, flank pain, frequent UTI's, hematuria, hesitency, incontinence, urinary retention, urgency, other Musculoskeletal: reports: no symptoms reported. denies: see HPI, bone pain, back pain, frequent leg cramps, joint pain, joint swelling, muscle aches, muscle weakness, neck pain, other Integumentary: reports: no symptoms reported. denies: see HPI, hives, hair loss, itching, mole changes, nail changes, rash, skin sores/ulcer, skin thickening, other Neurological: reports: no symptoms reported. denies: see HPI, ataxia, dizziness/vertigo, headache/migraines, loss of balance, numbness, paresthesia, seizure, slurred speech, syncope, tremors, other Psychiatric: reports: no symptoms reported. denies: see HPI, anxiety, anti- depressant use, alcohol/drug dependence, depression, emotional problems, insomnia, panic attacks, suicidal thoughts, other Endocrine: reports: no symptoms reported. denies: see HPI, change in skin pigment, excessive sweating, goiter, cold intolerance, heat intolerance, increased hunger, increased thirst, polyuria, other Hematologic/Lymphatic: reports: no symptoms reported. denies: see HPI, blood clots, easy bruising, low blood count, lymphedema, prolonged bleeding, swollen lymph nodes, transfusions, other Allergic/Immunologic: reports: no symptoms reported. denies: see HPI, allergic reactions, allergic rhinitis, asthma, eczema, food allergy, frequent infections, hay fever, hives, positive PPD, urticaria, other Past History - Adult - PAST MEDICAL HISTORY-ADULT Review of Records: reports: Nursing Assessment Review, Social history reviewed & non-contributory. Physical Exam-General - PHYSICAL EXAM-ADULT Initial Vital Signs Reviewed: Yes - CONSTITUTIONAL General Appearance: alert, moderate distress - EYES Eyes: PERRL/EOMI, pink conjunctivae - HEAD, EARS, NOSE, MOUTH & THROAT HENMT: normocephalic/atraumatic, moist mucous membranes, normal ENT inspection - NECK Neck: non-tender, full range of motion, supple - RESPIRATORY Respiratory: chest non-tender, no accessory muscle use - CARDIOVASCULAR Cardiovascular: normal peripheral pulses, no edema, no gallop, no JVD, no murmur , tachycardia - GASTROINTESTINAL (ABDOMEN) Abdominal Exam: normal bowel sounds, non tender, soft - LYMPHATIC Lymphatic: no adenopathy - MUSCULOSKELETAL Back Exam: normal inspection, no CVA tenderness, no vertebral tenderness Extremity: normal range of motion, non-tender, normal gait Peripheral Pulses: radial (R): 2+, radial (L): 2+ - SKIN Integumentary: normal color, normal turgor, warm/dry - NEUROLOGIC Neurologic: grossly normal - PSYCHIATRIC Psych/Mental Status: normal mood/affect, oriented x 3 Progress - PLAN OF CARE/RESULTS Progress/Plan/Lab Results: Vital Signs - 8 hr 04/29/19 21:21 04/29/19 21:37 04/29/19 21:39 Temperature 98.2 F Pulse Rate 137 H 128 H 122 H Respiratory Rate 20 28 H 19 Blood Pressure 149/92 127/92 O2 Sat by Pulse Oximetry 90 L 93 L 90 L 04/29/19 22:00 04/29/19 22:30 04/29/19 23:24 Temperature Pulse Rate 119 H 114 H 113 H Respiratory Rate 20 20 16 Blood Pressure 127/86 115/94 O2 Sat by Pulse Oximetry 92 L 92 L Laboratory Results - last 24 hr 04/29/19 04/29/19 04/29/19 21:38 21:38 21:38 WBC 15.00 H RBC 4.85 Hgb 13.5 Hct 42.1 MCV 86.8 MCH 27.8 MCHC 32.1 L RDW Std Deviation 14.6 H Plt Count 417 H MPV 10.0 Immature Gran % (Auto) 0.2 Neut % (Auto) 55.4 Lymph % (Auto) 18.1 L [place] % (Auto) 6.1 Eos % (Auto) 19.5 H Baso % (Auto) 0.7 Immature Gran # (Auto) 0.03 Neut # (Auto) 8.32 H Lymph # (Auto) 2.71 [place] # (Auto) 0.91 H Eos # (Auto) 2.93 H Baso # (Auto) 0.10 Specimen Type Sample Site pH pCO2 pO2 HCO3 Base Excess Oxyhemoglobin ABG O2 Sat (Calculated) ABG O2 Saturation ABG Carboxyhemoglobin ABG Methemoglobin Evangelista Test A-a O2 Difference Total Hemoglobin Lactate Liter Flow Blood Gas Modality FiO2 % Sodium 139 Potassium 4.5 Chloride 102 Carbon Dioxide 22 L Anion Gap 15 BUN 14 Creatinine 0.7 Estimated GFR/1.73 m2 > 60 BUN/Creatinine Ratio 20 Glucose 111 H Calculated Osmolality 279 Calcium 10.0 Magnesium Total Bilirubin 0.20 AST 28 ALT 12 Alkaline Phosphatase 119 H Troponin T < 0.010 Total Protein 7.7 Albumin 4.6 Globulin 3.0 Albumin/Globulin Ratio 1.0 Influenza A (Rapid) Influenza B (Rapid) 04/29/19 04/29/19 04/29/19 21:38 21:38 23:10 WBC RBC Hgb Hct MCV MCH MCHC RDW Std Deviation Plt Count MPV Immature Gran % (Auto) Neut % (Auto) Lymph % (Auto) [place] % (Auto) Eos % (Auto) Baso % (Auto) Immature Gran # (Auto) Neut # (Auto) Lymph # (Auto) [place] # (Auto) Eos # (Auto) Baso # (Auto) Specimen Type ARTERIAL Sample Site L BRACHIAL pH 7.39 pCO2 35 pO2 58 L HCO3 22.3 Base Excess -3.1 L Oxyhemoglobin 89.3 L* ABG O2 Sat (Calculated) 18.1 ABG O2 Saturation 92.8 L ABG Carboxyhemoglobin 2.70 H ABG Methemoglobin 1.1 Evangelista Test NO A-a O2 Difference 155.0 Total Hemoglobin 14.4 Lactate 1.00 Liter Flow 4.0 Blood Gas Modality CANNULA FiO2 % 36.0 Sodium Potassium Chloride Carbon Dioxide Anion Gap BUN Creatinine Estimated GFR/1.73 m2 BUN/Creatinine Ratio Glucose Calculated Osmolality Calcium Magnesium 2.0 Total Bilirubin AST ALT Alkaline Phosphatase Troponin T Total Protein Albumin Globulin Albumin/Globulin Ratio Influenza A (Rapid) NEGATIVE Influenza B (Rapid) NEGATIVE Orders Category Date Time Status Admit [facility] Routine AdmDCTranf 04/29/19 23:54 Active Activity - Bed Rest with BRP ORDERED Care 04/29/19 23:54 Active Oxygen Therapy- ED Nursing DIRECTED Care 04/29/19 21:24 Active Saline Loc DIRECTED Care 04/29/19 23:54 Active Saline Loc NOW Care 04/29/19 21:28 Active Vital Signs Order ROUTINE Care 04/29/19 23:54 Active Z-Document. for Tele Applied ORDERED Care 04/29/19 23:55 Active Regular Diet Diet 04/29/19 23:55 Active cxr [CHEST-PORTABLE] [RAD] Stat Exams 04/29/19 21:25 Completed ABG [RESP] Routine Lab 04/29/19 23:10 Completed CBC WITH ELECTRONIC DIFF [HEME] Stat Lab 04/29/19 21:38 Completed COMPREHENSIVE METABOLIC PANEL [CHEM] Stat Lab 04/29/19 21:38 Completed Flu [INFLUENZA SCREEN PL] Stat Lab 04/29/19 21:38 Completed MAGNESIUM [CHEM] Stat Lab 04/29/19 21:38 Completed TROPONIN T Stat Lab 04/29/19 21:38 Completed Acetaminophen [Tylenol] Med 04/29/19 23:54 Active 650 mg PO Q6H PRN PRN Albuterol 2.5MG/Ipratrop 0.5MG [Duoneb (A & A)] Med 04/29/19 21:24 Discontinued 3 ml INH NOW ONE Albuterol 2.5MG/Ipratrop 0.5MG [Duoneb (A & A)] Med 04/29/19 21:49 Discon tinued 3 ml INH NOW ONE Albuterol 2.5MG/Ipratrop 0.5MG [Duoneb (A & A)] Med 04/30/19 03:30 Ordered 3 ml INH RTQ4H Albuterol [Albuterol Neb] Med 04/29/19 23:16 Discontinued 2.5 mg INH NOW ONE Magnesium Sulfate 1 gm/D5w Med 04/29/19 21:28 Discontinued 1 gm in 100 ml IV NOW Methylprednisolone Sod Succ [Solu-Medrol] Med 04/29/19 21:28 Discontinued 125 mg IV NOW ONE Nicotine Patch [Nicoderm Patch] Med 04/29/19 22:37 Discontinued 14 mg TD NOW ONE Aerosol Treatments Routine Oth 04/29/19 21:25 Completed Aerosol Treatments Routine Ot 04/29/19 21:49 Completed Aerosol Treatments Routine Ot 04/29/19 23:16 Active Aerosol Treatments Routine Ot 04/29/19 23:55 Active Aerosol Treatments Stat Ot 04/29/19 21:24 Completed Aerosol Treatments Stat Oth 04/29/19 21:25 Completed Aerosol Treatments Stat Oth 04/29/19 21:49 Completed Aerosol Treatments Stat Ot 04/29/19 23:16 Active Aerosol Treatments Stat Ot 04/29/19 23:55 Active Asthma/COPD (Adult) Stat Ot 04/29/19 21:24 Ordered Telemetry [OM.EQ] Routine Oth 04/29/19 23:54 Active EKG [EKG] Stat Ther 04/29/19 22:02 Ordered Transfer/Admit Order [TRANSFER] Routine Transfer 04/29/19 23:56 Ordered Result Diagrams: 04/29/19 21:38 04/29/19 21:38 - REASSESSMENT Reassessment #1 Time Reassessed: 21:50 (PT REPORTS SHE FEELS IMPROVED WITH NEB BUT REMAINS DIFFUSELY WHEEZY ON REASSMENT, MAG INFUSING CURRENTLY STERIODS RECEIVED) Status: unchanged Reassessment #2 Time Reassessed: 23:58 (PT REPORTS FEELING IMPROVED, IN NAD, CONTINUED WHEEZING ) Status: improving - XRAY 1 XRAY Study: Chest Impression: See EMR Report (CHEST-PORTABLE - 04/29/2019 INDICATION: SOB COMPARISON: 02/22/2019 FINDINGS: The lungs are normally expanded and clear. Heart size and mediastinal contours are normal. No pneumothorax or pleural effusion. IMPRESSION: Negative exam. Electronically signed by Latrell Wick 04/29/2019 10:37 PM 04/29/192236 Interpreting Physician: Latrell Wick MD Dictated Date/Time: 04/29/192227 cc: Kath Woodard; Jesse Em) - CONSULTS/PCP/HOSPITALIST Notification #1 *Consult/PCP/Hospitalist*: DR MAX Time Discussed: 23:58 Consult Disposition: Admit Departure - Departure Date of Disposition Decision: 04/29/19 Time of Disposition Decision: 23:59 DIAGNOSIS: Asthma with severe exacerbation, Hypoxia, Respiratory distress, Leukocytosis, Tobacco abuse Disposition: ADMITTED INPATIENT 09 Certified Medical Emergency: Emergent Condition: Fair Referrals and Follow-Ups: Jesse Em [Primary Care Provider] - - Critical Care Note This patient required my direct & personal management of CC.: No Attestation - Physician/ FRANK Attestation Patient care was provided by Advanced Practice Provider:: Yes Advanced Practice Provider:: Kath Woodard Advanced Practice Provider documentation review:: The Mid-level provider documentation, treatment plan and medical decision making was reviewed by the physician who agrees with all treatment and medical decision making by the MLP. The physician spent face to face time with patient:: No Advanced Practice Provider documentation review:: Supervising physician onsite and consulted in the evaluation and care of this patient. The physician did not have a face to face encounter with the patient.
[2019-04-29 22:12] LABS: AGAP 15; ALBUMIN 4.6 g/dL (3.5-5.0); ALKALINE PHOSPHATASE 119 U/L (32-104); BUN 14 mg/dL (8-22); CHLORIDE 102 mmol/L (98-107); COSMO 279; CREATININE 0.7 mg/dL (0.5-0.9); ESTIMATED GFR > 60; GLUCOSE 111 mg/dL (70-104); GOT 28 U/L (10-30); GPT 12 U/L (10-36); POTASSIUM 4.5 mmol/L (3.5-5.1); SODIUM 139 mmol/L (136-145); TCO2 22 mmol/L (25-35); TOTAL PROTEIN 7.7 g/dL (6.3-8.3)
[2019-04-29 22:22] LABS: INFLUENZA A NEGATIVE (NEGATIVE); INFLUENZA B NEGATIVE (NEGATIVE)
[2019-04-29] MEDS ORDERED: NICODERM PATCH TD ONE (22:37)
--- NOTE | 2019-04-29 22:39 | Diag Imaging Result Doc PS360 ---
CHEST-PORTABLE - 04/29/2019 INDICATION: SOB COMPARISON: 02/22/2019 FINDINGS: The lungs are normally expanded and clear. Heart size and mediastinal contours are normal. No pneumothorax or pleural effusion. IMPRESSION: Negative exam. Electronically signed by Latrell Wick 04/29/2019 10:37 PM
[2019-04-29] MEDS ORDERED: ALBUTEROL NEB INH ONE (23:16)
[2019-04-29 23:30] LABS: BE -3.1 mmoll (-3.0-3.0); BLOOD TYPE ARTERIAL; HCO3-(ACT) 22.3 mmoll (20.0-26.0); METHB 1.1 % (0.0-1.5); O2(CT) 18.1 mL/dL (15.0-23.0); PCO2(98.6) 35 mmHg (35-45); PO2(98.6) 58 mmHg (60-100); SAMPLE BLOOD; SAO2 92.8 % (95.0-100.0); THB 14.4 g/dL (11.5-17.4); pH(98.6) 7.39 (7.35-7.45)
[2019-04-29 23:32] LABS: ALLEN TEST NO; MODALITY CANNULA; O2HB 89.3 % (95.0-99.0)
[2019-04-29 23:40] LABS: BASO% 0.7 % (0.0-0.8); EOS# 2.93 X1000 (0.0-0.7); EOS% 19.5 % (0.0-10.0); HEMATOCRIT 42.1 % (37.0-47.0); HEMOGLOBIN 13.5 g/dL (12.0-16.0); IMM GRAN# 0.03 X1000 (0.0-0.04); IMM GRAN% 0.2 % (0.0-0.5); LYMPH# 2.71 X1000 (1.2-3.4); LYMPH% 18.1 % (20.5-51.1); MCH 27.8 PG (27-31); MCHC 32.1 g/dL (33-37); MCV 86.8 FL (81-99); MONO# 0.91 X1000 (0.11-0.59); MONO% 6.1 % (1.7-9.3); NEUT# 8.32 X1000 (1.4-6.5); NEUT% 55.4 % (42.2-75.2); PLT 417 X1000 (130-400); RBC 4.85 XMIL (4.2-5.4); RDW 14.6 % (11.5-14.5)
[2019-04-29] MEDS ORDERED: TYLENOL PO PRN (23:54)
--- NOTE | 2019-04-30 00:17 | EKG Report ---
Test Performed on : 04/29/2019 10:36:54 PM Test Reason : TACHY Blood Pressure : / mmHG Vent. Rate : 113 BPM Atrial Rate : 113 BPM P-R Int : 132 ms QRS Dur : 074 ms QT Int : 328 ms P-R-T Axes : 074 -14 064 degrees QTc Int : 449 ms Sinus tachycardia. Otherwise normal ECG When compared with ECG of 21-FEB-2019 22:05, (Unconfirmed) No significant change was found Confirmed by Adithya Rolon MD ([id number]), telegraph editor Ignacia Luna ([id number]) on 06/05/2019 12:38:05 PM
[2019-04-30] MEDS ORDERED: ROBITUSSIN PO PRN (01:38)
[2019-04-30] MEDS ORDERED: ALBUTEROL NEB INH PRN (01:38)
[2019-04-30] MEDS: ROBITUSSIN PO PRN ×2 (02:34→10:17)
[2019-04-30] MEDS: DUONEB (A & A) INH SCH ×6 (03:19→23:21)
[2019-04-30] MEDS ORDERED: ZOFRAN IV PRN (08:14)
[2019-04-30] MEDS ORDERED: SALINE LOCK IV FLUID XX ONE (08:14)
[2019-04-30] MEDS ORDERED: SOLU-MEDROL IV SCH (09:00)
[2019-04-30] MEDS: NICODERM PATCH TD SCH (09:42)
[2019-04-30] MEDS: ZITHROMAX 500 MG/NS 500 MG/250 ML IVPB IV SCH (12:05)
[2019-04-30] MEDS: KLONOPIN PO PRN (12:44)
--- NOTE | 2019-04-30 13:53 | HISTORY AND PHYSICAL ---
PRIMARY CARE PROVIDER: CHIEF COMPLAINT: Shortness of breath. HPI: Ms. Ayala is a unfortunate 38-year-old female with a past medical history of asthma, anxiety and depression, seasonal allergies and fever blisters has had multiple admissions for asthma exacerbations come to the ED on 04/29/2019 at [facility] reporting issues with her asthma on and off for 2 weeks. She would report that her breathing treatments would work for a couple of days and then they would wear off and she would be back in the bed. She felt that she has had a low-grade temperature of 100.7 degrees at home. She has had a productive cough with clear phlegm, audible wheezes. She has not had any followup with any primary care provider because she has no insurance is in the process of filing for disability. Upon arrival to the ED she was found to be hypoxemic, tachycardic, placed on supplemental O2, initiated on bronchodilators, IV steroids, IV magnesium and guaifenesin. We will add some azithromycin as well as the Advair to her regimen and continue with further treatment and evaluation. She continues to have audible inspiratory and expiratory wheezes. She does feel like she has improved since her admission she is requiring 4 L nasal cannula, do have a low threshold to transfer her to [facility] for pulmonary consult. We will continue to monitor her closely. PAST MEDICAL HISTORY: 1. Right ankle bone needs a cadaver bone graft that has not been done yet. 2. Depression, anxiety. 3. Asthma diagnosed in her early 30s. 4. Axillary abscess that was positive for MRSA recent left axillary abscess. 5. Seasonal allergies. 6. Fever blisters. SURGICAL HISTORY: Tonsillectomy, sinus surgery and clean out of multiple polyps, right ankle surgery status post trauma, I and D of the right axillary abscess on 02/06/2019, last mammogram was age 33, she was also a BRCA 2 negative. SOCIAL HISTORY: She smokes a pack per day has done so for 23 years. She is in the process of trying to quit. She has weaned down to 3 cigarettes a day. Occasionally drinks, smoked marijuana about once a month, lives in apartment with her boyfriend never been , no children. FAMILY HISTORY: Mother with breast cancer and lung cancer at the age of 54. Grandmother had breast cancer, grandfather had CO in his 50s, multiple other females in her family that had breast cancer. ALLERGIES: No known drug allergies. HOME MEDICATIONS: Klonopin, Valtrex, Wellbutrin, albuterol, Atrovent, Symbicort. REVIEW OF SYSTEMS: Twelve-point review of systems completely negative except for those mentioned in HPI. PHYSICAL EXAM: VITAL SIGNS: Temperature is 98.4 degrees, heart rate 109, respirations 18, blood pressure 135/81, O2 is 96% on 4 L nasal cannula. GENERAL: Ms. Ayala is a 38-year-old female who is sitting up on the side of the bed coughing audible wheezing noted, she is spitting in a elizalde clear phlegm however she remains with a very bubbly and positive attitude when speaking with her although she is one of the more sicker patients on the unit. HEENT: Atraumatic, normocephalic. PERRL. NECK: Supple, trachea midline. CARDIOVASCULAR: S1, S2 appreciated. She is tachycardic but no murmurs, gallops, or rubs noted. No lower extremity edema. No JVD. PULMONARY: Inspiratory and expiratory wheezes noted throughout all lung cassidy anteriorly and posteriorly. GASTROINTESTINAL: Soft, nontender, nondistended. Positive bowel sounds 4 quads. EXTREMITIES: Moves all extremities well. NEURO: Again no focal deficits noted. Very pleasant demeanor, very bubbly personality. SKIN: Warm, dry and intact. DIAGNOSTIC DATA: Chest x-ray negative exam. LABORATORY DATA: White count 15, hemoglobin and hematocrit 13 and 42, platelet count was 417,000. ABG, pH was 7.39, pCO2 35, PO2 58, bicarb 22, base excess -3.1, oxyhemoglobin was 89.3, O2 saturation was 92.8 on 4 L nasal cannula. Sodium 139, potassium 4.5, BUN 14, creatinine 0.7, blood glucose was 111, alkaline phosphatase 119, troponin less than 0.010. Flu A and B negative. ASSESSMENT AND PLAN: 1. Acute asthma exacerbation. Patient has been placed on high-dose intravenous steroids, azithromycin, Advair, bronchodilators, aggressive pulmonary toilet, supplemental O2. Again we will watch patient very closely, low tolerance to transfer her to [facility] for Pulmonary consult. 2. Acute respiratory failure with hypoxemia. Continue supplemental O2. 3. Anxiety and depression. We will continue patient on home medications. 4. Further recommendation to follow physician evaluation, laboratory and diagnostic data. Dictated by CARISA Dockery for Yves Pineda MD cc: Yves Pineda MD
--- NOTE | 2019-04-30 15:01 | HISTORY AND PHYSICAL ---
ADDENDUM: The patient was seen and examined by myself. Full note dictated and discussed with nurse practitioner. The patient presented to the hospital in moderate distress due to wheezing. Notes that she has been sick for the past 3 or 4 weeks. She has continued to smoke, although does note that she has been actively weaning down. Discussed with her the perils of smoking as well as ways to stop. We are going to admit her to the hospital. She has audible wheezing. Continue steroids, oxygen, breathing treatments, and will follow. cc: Yves Pineda MD
[2019-04-30] MEDS: SOLU-MEDROL IV SCH (19:22)
[2019-04-30] MEDS: ADVAIR 500/50 DISKUS INH SCH (19:37)
[2019-05-01] MEDS: DUONEB (A & A) INH SCH ×6 (03:10→22:54)
[2019-05-01] MEDS: SOLU-MEDROL IV SCH ×3 (04:53→20:34)
[2019-05-01] MEDS: ROBITUSSIN PO PRN ×2 (05:00→11:52)
[2019-05-01 05:53] LABS: MCH 26.8 PG (27-31); MCHC 29.7 g/dL (33-37); MCV 90.2 FL (81-99); MPV 9.7 FL (7.4-10.4); RBC 4.1 XMIL (4.2-5.4); RDW 14.7 % (11.5-14.5); WBC 14.44 X1000 (4.8-10.8)
[2019-05-01 06:22] LABS: AGAP 12; BUN 22 mg/dL (8-22); CHLORIDE 107 mmol/L (98-107); COSMO 291; CREATININE 0.6 mg/dL (0.5-0.9); ESTIMATED GFR > 60; GLUCOSE 206 mg/dL (70-104); POTASSIUM 4.8 mmol/L (3.5-5.1); SODIUM 141 mmol/L (136-145); TCO2 23 mmol/L (25-35)
[2019-05-01] MEDS: ADVAIR 500/50 DISKUS INH SCH ×2 (07:54→19:23)
[2019-05-01] MEDS: WELLBUTRIN XL PO SCH (09:43)
[2019-05-01] MEDS: NICODERM PATCH TD SCH (09:43)
[2019-05-01] MEDS: ZITHROMAX 500 MG/NS 500 MG/250 ML IVPB IV SCH (11:52)
--- NOTE | 2019-05-01 22:24 | PROGRESS NOTE ---
DATE: 05/01/2019 SUBJECTIVE: Patient notes that although she is wheezing, short of breath and having difficulty ambulating to the restroom, she feels tremendously better than she did yesterday, much less shortness of breath, less coughing. Denies any fevers or chills. OBJECTIVE: Vital Signs: Temperature 98 degrees, pulse 106, respiratory rate 18, BP 141/92. General: Patient is awake, alert, currently in mild respiratory distress, which is a marked improvement from yesterday's exam. HEENT: Normocephalic. Neck: Supple. Cardiovascular: Tachycardia, no murmurs. Chest: Decreased but improved air movement, wheezing, but again improved from yesterday's exam where she had audible wheezing yesterday and does not today. Abdomen: Soft, nondistended. Extremities: Moves all extremities. No edema. Neurologic: No changes. ASSESSMENT: 1. Severe asthma exacerbation. 2. Noncompliance medically due to falls. 3. Acute hypoxic respiratory failure. 4. Chronic anxiety and depression. PLAN: We are going to continue patient in the hospital. Continue breathing treatments, oxygen, antibiotics, steroids, and will follow. cc: Yves Pineda MD
[2019-05-01] MEDS: KLONOPIN PO PRN (23:00)
[2019-05-02] MEDS: KLONOPIN PO PRN (03:23)
[2019-05-02] MEDS: DUONEB (A & A) INH SCH ×6 (03:26→23:47)
[2019-05-02] MEDS: NICOTINE GUM BUCCAL PRN ×3 (04:59→23:15)
[2019-05-02] MEDS: SOLU-MEDROL IV SCH ×3 (05:05→21:21)
[2019-05-02] MEDS: ADVAIR 500/50 DISKUS INH SCH ×2 (07:57→19:27)
[2019-05-02] MEDS: WELLBUTRIN XL PO SCH (08:59)
[2019-05-02] MEDS: ROBITUSSIN PO PRN (08:59)
[2019-05-02] MEDS: ZITHROMAX PO SCH (09:21)
[2019-05-02] MEDS: NICODERM PATCH TD SCH (09:21)
[2019-05-02] MEDS ORDERED: SOLU-MEDROL IV ONE (11:00)
--- NOTE | 2019-05-02 17:42 | PROGRESS NOTE ---
DATE: 05/02/2019 SUBJECTIVE: The patient states that she is feeling better. She is breathing easier. Denies any chest pain or palpitations. OBJECTIVE: Vital signs reviewed. Temperature 98 degrees, pulse 82, respiratory rate 20, BP 134/91.General: The patient is awake. She is pleasant. She is in mild distress. HEENT: Normocephalic. Neck supple. Cardiovascular: Regular rate. Chest decreased but equal. Much improved, much less wheezing. Better air movement. Abdomen soft, nondistended. Extremities: Moves all extremities. Neurologic: No focal changes. Skin warm and dry. No rashes. ASSESSMENT AND PLAN: 1. Acute asthma exacerbation. We are going to continue her on Solu-Medrol. We will decrease to 40 q.8 and we will follow. We will continue oxygen, breathing treatments, steroids. 2. Chronic tobacco abuse. Again discussed with the patient the perils of smoking as well as reasons to stop. cc: Yves Pineda MD
[2019-05-03] MEDS: DUONEB (A & A) INH SCH ×3 (03:34→11:17)
[2019-05-03 05:29] VITALS: BP 113/60
[2019-05-03] MEDS: SOLU-MEDROL IV SCH (06:27)
[2019-05-03] MEDS: ADVAIR 500/50 DISKUS INH SCH (07:09)
[2019-05-03] MEDS: NICODERM PATCH TD SCH (09:03)
[2019-05-03] MEDS: WELLBUTRIN XL PO SCH (09:03)
[2019-05-03] MEDS: ZITHROMAX PO SCH (09:03)
[2019-05-03] MEDS ORDERED: SOLU-MEDROL IV ONE (11:15)
--- NOTE | 2019-05-03 11:45 | DISCHARGE SUMMARY ---
ADMISSION DATE: 04/30/2019 DISCHARGE DATE: 05/03/2019 PRIMARY CARE PHYSICIAN: Dr. Jesse Em. ADMISSION DIAGNOSES: 1. Acute asthma exacerbation. 2. Acute respiratory failure with hypoxemia. 3. Anxiety and depression. DISCHARGE DIAGNOSES: 1. An acute asthma exacerbation, improved. 2. Chronic tobacco abuse. 3. Acute respiratory failure with hypoxemia, resolved. 4. Anxiety and depression. SUMMARY OF FINDINGS: This is a 38-year-old female who presented to the emergency department reporting that her breathing treatments would work for a couple of days, and then they would wear off and she would be back in the bed. Reported a low-grade temperature of 100.7 degrees, had a productive cough with clear phlegm, audible wheezing, so she was admitted for an asthma exacerbation. Placed on O2. Solu-Medrol weaned to taper as she improved. DuoNebs q. 4 hours routinely and q. 2 hours p.r.n. She is saturating 98% on room air and it is now felt that she can safely be discharged home today. DISCHARGE MEDICATIONS: 1. DuoNebs q. 4 hours. 2. Bupropion 150 mg p.o. daily. 3. Clonazepam 1 mg p.o. b.i.d. p.r.n. 4. Ventolin inhaler 2 puffs q. 6 hours p.r.n. 5. Pulmicort 0.5 mg inhalation daily. 6. Medrol Dosepak take as directed. 7. Valtrex 500 mg p.o. daily. FOLLOWUP: She will need to follow up with her primary care physician in 1 to 2 weeks and call his office for an appointment. TIME SPENT: A 35 minute discharge. Dictated by CARISA Nettles for Yves Pineda MD cc: CARISA Nettles MD Neil Yeager, MD
--- NOTE | 2019-05-03 15:28 | DISCHARGE SUMMARY ---
ADMISSION DATE: 04/30/2019 DISCHARGE DATE: 05/03/2019 Patient presented to the hospital with acute asthma exacerbation. Thankfully overall she is improved. She is awake, alert, and very pleasant. She is in no respiratory distress. She is cognitively attentive. Lungs are clear. She was admitted initially with moderately severe wheezing marked with decreased oral intake. Patient will be discharged home. She will continue steroid taper at home. I wrote prescriptions for albuterol, Atrovent as well as Pulmicort in her nebulizer. Discussed with her how to use these. cc: Yves Pineda MD
== END 2019-05-03 12:30 | disposition home or self-care (01) ==
LOC: P.ED 21:19 → P.MEDSURG 04-30 00:20
PROVIDERS: ATTEND Family Medicine